=== PATIENT | male | born 1970 | race Caucasian/White ===

== ENCOUNTER 2020-10-01 17:29 | Emergency (ER) | payer BC ==
[2020-10-01] MEDS ORDERED: Famotidine 20 MG/2 ML SDV IVPUSH ONE (17:32)
[2020-10-01] MEDS ORDERED: diphenhydrAMINE 50 MG/ML SDV IVPUSH ONE (17:32)
[2020-10-01] MEDS ORDERED: methylPREDNISolone Sodium Succinate 125 MG/2 ML SDV IVPUSH ONE (17:32)
[2020-10-01] MEDS ORDERED: Sodium Chloride 0.9% 1,000 ML IV ONE (17:32)
--- NOTE | 2020-10-01 17:46 | EDM.PDOC ---
ED HPI GENERAL MEDICAL PROBLEM - General Stated Complaint: THROAT CLOSING UP Time Seen by Provider: 10/01/20 17:34 Source of Information: Reports: Patient History Limitations: Reports: No Limitations - History of Present Illness INITIAL COMMENTS - FREE TEXT/NARRATIVE: HISTORY AND PHYSICAL: History of present illness: Patient is a 50-year-old male who presents to the emergency room with concerns of an allergic reaction. He states 2 or 3 hours prior to arrival he was using Round-Up on the lawn and shortly afterwards felt a fullness sensation in his throat. He took 2 tabs of Benadryl prior to arrival but has not had any relief with that. Denies any other new exposures, foods or allergens. Patient denies any fever, chills, headache, change in vision, syncope or near syncope. Denies any chest pain, back pain, shortness of breath or cough. Denies any abdominal pain, nausea, vomiting, diarrhea, constipation or dysuria. Has not noted any blood in urine or stool. Patient has been eating and drinking appropriately. Review of systems: As per history of present illness and below otherwise all systems reviewed and negative. Past medical history: As per history of present illness and as reviewed below otherwise noncontributory. Surgical history: As per history of present illness and as reviewed below otherwise noncontributory. Social history: See social history for further information Family history: As per history of present illness and as reviewed below otherwise noncontributory. Physical exam: General: Well developed and well nourished. Alert and orientated x 3. Nontoxic in appearance and in no acute distress. Vital signs are stable and have been reviewed by me. Nursing notes were reviewed. HEENT: Atraumatic, normocephalic, pupils equal and reactive bilaterally, negativ e for conjunctival pallor or scleral icterus, mucous membranes moist, TMs normal bilaterally, throat clear, airway patent, neck supple, nontender, trachea midline. No drooling or trismus noted. No meningeal signs. No hot potato voice noted. Lungs: Clear to auscultation bilaterally. No wheezes, rales, or rhonchi. Chest nontender. Normal work of breathing, no accessory muscles used. Heart: S1S2, regular rate and rhythm without overt murmur, gallops, or rubs. No JVD. No peripheral edema Abdomen: Soft, nondistended, nontender. Normoactive bowel sounds. Negative for masses or costovertebral tenderness. Skin: Intact, warm, dry. No lesions or rashes noted. Hematologic: No petechiae or purpra. Mucosa appropriate color and normal nail bed color and refill. Extremities: Atraumatic, moves all extremities per self without difficulty or deficits, negative for cords or calf pain. Neurovascular unremarkable. Neuro: Awake, alert, oriented. Cranial nerves II through XII unremarkable. Cerebellum unremarkable. Motor and sensory unremarkable throughout. Exam nonfocal. Psychiatric: Mood and affect are appropriate. Normal thought process. Answering questions appropriately. Notes: *This patient was seen and evaluated during the 2019 SARS-CoV-2 novel coronavirus pandemic period. Community viral transmission is ongoing at time of this encounter and the emergency department is operating under pandemic response procedures. Patient is a 50-year-old male who presents to the emergency room with complaints of sensation of his tongue swelling after what he believes is an allergic reaction to Round-Up weed killer. Patient is able to swallow his saliva, breathe easy and even, and able speak clearly although does sound thick. I will give patient some epinephrine, IV fluids/medication and do basic lab work. Vital signs are stable at this time, will continue to monitor. Patient does feel improved after medications and fluids. Patient's states that he has had sinus issues for the past week, stuffy nose, nasal drainage and sinus pressure. Patient states he still feels like he has a lot of phlegm sitting in the back of his throat. We discussed treating for sinusitis. His vital signs are stable and oxygen saturation is 97% to 100% on room air. We will continue to monitor for 4 hours to ensure he is stable to be discharged to home. I have talked with the patient about today's findings, in addition to providing specific details for plan of care. Reassessment at the time of disposition demonstrates that the patient is in no acute distress. The patient is stable for discharge, counseling was provided and we discussed in great detail signs and symptoms that would prompt them to return to the Emergency Department. Medication, follow up and supportive care measures were reviewed and discussed. Voices understanding and is agreeable to plan of care. Denies any further questions or concerns at this time. Diagnostics: CBC, CMP, EKG Therapeutics: Epinephrine, Solu-Medrol, Pepcid, IV Fluids Prescription: Prednisone, EpiPen, Augmentin Impression: Allergic reaction Sinusitis Plan: 1. Avoid triggers. Continue to monitor for possible exposures/triggers/foods. 2. While symptomatic continue to routinely take Benadryl 50mg every 4-6 hours and Zantac 150mg twice daily. Take the Prednisone as prescribed. 3. Carry your Epi-Pen with you at all times. Use in the case of an emergency and call 911 and/or present to the ER. 4. You may use topical calamine lotion, cool tempid oatmeal baths, Aveeno bath/lotions. 5. Consider formal allergy testing once you have completed your medications and have improved. 6. Please follow up with your Primary care doctor tomorrow. If your symptoms should worsen, new symptoms develop or any of the signs and symptoms we discussed should arise please return to the emergency room or call 911 (if needed). Definitive disposition and diagnosis as appropriate pending reevaluation and review of above. - Related Data Allergies Allergy/AdvReac Type Severity Reaction Status Date / Time No Known Allergies Allergy Verified 10/01/20 17:33 Home Meds: Home Meds Fluticasone Propionate [Flonase Allergy Relief] 1 spray NASBOTH ASDIRECTED 04/09/16 [History] Glucosam/Chond/Collagen/Hyalur [Glucosamine Chondroitin] 1 tab PO DAILY 04/09/16 [History] Lisinopril 20 mg PO DAILY 04/09/16 [History] Tadalafil [Cialis] 1 tab PO ASDIRECTED 04/09/16 [History] hydroCHLOROthiazide [Hydrochlorothiazide] 12.5 mg PO DAILY 04/09/16 [History] Amoxicillin/Clavulanate K [Augmentin 875-125 MG] 1 tab PO BID 7 Days #14 tablet 10/01/20 [Rx] EPINEPHrine [Epipen 2-Mikhail] 0.3 mg IJ ASDIRECTED PRN #1 auto.injct 10/01/20 [Rx] predniSONE [Prednisone] 40 mg PO DAILY 3 Days #6 tablet 10/01/20 [Rx] Past Medical History HEENT History: Reports: Allergic Rhinitis, Other (See Below) Other HEENT History: wears glasses Cardiovascular History: Reports: Hypertension Respiratory History: Reports: Sleep Apnea Other Respiratory History: uses CPAP Genitourinary History: Reports: Other (See Below) Other Genitourinary History: hx urethral stricture Endocrine/Metabolic History: Reports: Obesity/BMI 30+ - Past Surgical History HEENT Surgical History: Reports: Other (See Below) Male Surgical History: Reports: Other (See Below) ED ROS ALLERGIC REACTION - Review of Systems Review Of Systems: Comprehensive ROS is negative, except as noted in HPI. ED EXAM GENERAL NO PERIP PULSE - Physical Exam Exam: See Below (See dictation) Course - Vital Signs Last Recorded V/S: Last Vital Signs Temp 98.7 F 10/01/20 17:34 Pulse 83 10/01/20 20:40 Resp 19 10/01/20 20:40 BP 171/114 H 10/01/20 20:40 Pulse Ox 96 10/01/20 20:40 - Orders/Labs/Meds Orders: Active Orders 24 hr Category Date Time Status EKG Documentation Completion [RC] AM Care 10/01/20 17:32 Active Labs: Laboratory Tests 10/01/20 10/01/20 Range/Units 17:40 17:40 WBC 6.28 (4.0-11.0) K/uL RBC 4.56 (4.50-5.90) M/uL Hgb 14.4 (13.0-17.0) g/dL Hct 41.5 (38.0-50.0) % MCV 91.0 (80.0-98.0) fL MCH 31.6 (27.0-32.0) pg MCHC 34.7 (31.0-37.0) g/dL RDW Std Deviation 43.4 (28.0-62.0) fl RDW Coeff of Britt 13 (11.0-15.0) % Plt Count 209 (150-400) K/uL MPV 9.60 (7.40-12.00) fL Neut % (Auto) 68.0 (48.0-80.0) % Lymph % (Auto) 19.1 (16.0-40.0) % Newton % (Auto) 8.0 (0.0-15.0) % Eos % (Auto) 4.6 (0.0-7.0) % Baso % (Auto) 0.3 (0.0-1.5) % Neut # (Auto) 4.3 (1.4-5.7) K/uL Lymph # (Auto) 1.2 (0.6-2.4) K/uL [place] # (Auto) 0.5 (0.0-0.8) K/uL Eos # (Auto) 0.3 (0.0-0.7) K/uL Baso # (Auto) 0.0 (0.0-0.1) K/uL Nucleated RBC % 0.0 /100WBC Nucleated RBCs # 0 K/uL Sodium 139 (136-148) mmol/L Potassium 4.1 (3.5-5.1) mmol/L Chloride 103 (98-107) mmol/L Carbon Dioxide 23.8 (21.0-32.0) mmol/L BUN 21 H (7.0-18.0) mg/dL Creatinine 1.0 (0.8-1.3) mg/dL Est Cr Clr Drug Dosing 103.89 mL/min Estimated GFR (MDRD) > 60.0 ml/min Glucose 98 (74-106) mg/dL Calcium 8.6 (8.5-10.1) mg/dL Total Bilirubin 0.3 (0.2-1.0) mg/dL AST 28 (15-37) IU/L ALT 38 (14-63) IU/L Alkaline Phosphatase 85 (46-116) U/L Total Protein 7.4 (6.4-8.2) g/dL Albumin 4.0 (3.4-5.0) g/dL Globulin 3.4 (2.6-4.0) g/dL Albumin/Globulin Ratio 1.2 (0.9-1.6) Meds: Medications Discontinued Medications Generic Name Dose Route Start Last Admin Trade Name Freq PRN Reason Stop Dose Admin Amoxicillin/Clavulanate Potassium 1 tab 10/01/20 20:33 10/01/20 20:39 Amoxicillin/Clavulanate K 875-125 Mg Tab PO 10/01/20 20:34 1 tab ONETIME ONE Administration Diphenhydramine HCl 25 mg 10/01/20 17:32 10/01/20 17:40 Diphenhydramine 50 Mg/Ml Sdv IVPUSH 10/01/20 17:33 25 mg ONETIME ONE Administration Epinephrine HCl 0.3 mg 10/01/20 17:58 10/01/20 18:09 Epinephrine 1 Mg/Ml Sdv IM 10/01/20 17:59 0.3 mg ONETIME ONE Administration Famotidine 20 mg 10/01/20 17:32 10/01/20 17:40 Famotidine 20 Mg/2 Ml Sdv IVPUSH 10/01/20 17:33 20 mg ONETIME ONE Administration Sodium Chloride 1,000 mls @ 999 mls/hr 10/01/20 17:32 10/01/20 17:39 Normal Saline IV 10/01/20 18:32 999 mls/hr STAT ONE Administration Methylprednisolone Sodium Succinate 125 mg 10/01/20 17:32 10/01/20 17:41 Methylprednisolone Sodium Succinate 125 Mg/2 Ml Sdv IVPUSH 10/01/20 17:33 125 mg ONETIME ONE Administration Departure - Departure Time of Disposition: 21:02 Disposition: Home, Self-Care 01 Clinical Impression: Allergic reaction Qualifiers: Encounter type: initial encounter Qualified Code(s): T78.40XA - Allergy, unspecified, initial encounter - Discharge Information Prescriptions: Amoxicillin/Clavulanate K [Augmentin 875-125 MG] 1 tab PO BID 7 Days #14 tablet EPINEPHrine [Epipen 2-Mikhail] 0.3 mg IJ ASDIRECTED PRN #1 auto.injct PRN Reason: Allergic reaction predniSONE [Prednisone] 40 mg PO DAILY 3 Days #6 tablet Referrals: Demi Siddiqui DO [Primary Care Provider] - Additional Instructions: The following information is given to patients seen in the emergency department who are being discharged to home. This information is to outline your options for follow-up care. We provide all patients seen in our emergency department with a follow-up referral. The need for follow-up, as well as the timing and circumstances, are variable depending upon the specifics of your emergency department visit. If you don't have a primary care physician on staff, we will provide you with a referral. We always advise you to contact your personal physician following an emergency department visit to inform them of the circumstance of the visit and for follow-up with them and/or the need for any referrals to a consulting specialist. The emergency department will also refer you to a specialist when appropriate. This referral assures that you have the opportunity for follow-up care with a specialist. All of these measure are taken in an effort to provide you with optimal care, which includes your follow-up. Under all circumstances we always encourage you to contact your private physician who remains a resource for coordinating your care. When calling for follow-up care, please make the office aware that this follow-up is from your recent emergency room visit. If for any reason you are refused follow-up, please contact the [facility] Emergency Department at and asked to speak to the emergency department charge nurse. [facility] [address] [place] [id number] [facility] [address] [place] [id number] Thank you for choosing the [facility] emergency department in [place] for your medical needs today. It was a pleasure caring for you. Today you were seen in the emergency department for allergic reaction. 1. Avoid triggers. Continue to monitor for possible exposures/triggers/foods. 2. While symptomatic continue to routinely take Benadryl 50mg every 4-6 hours and Zantac 150mg twice daily. Take the Prednisone as prescribed. 3. Carry your Epi-Pen with you at all times. Use in the case of an emergency and call 911 and/or present to the ER. 4. You may use topical calamine lotion, cool tempid oatmeal baths, Aveeno bath/lotions. 5. Consider formal allergy testing once you have completed your medications and have improved. 6. Please follow up with your Primary care doctor tomorrow. If your symptoms should worsen, new symptoms develop or any of the signs and symptoms we discussed should arise please return to the emergency room or call 911 (if needed). Sepsis Event Note (ED) - Focused Exam Vital Signs: Vital Signs Temp Pulse Resp BP Pulse Ox 10/01/20 20:40 83 19 171/114 H 96 10/01/20 17:34 98.7 F 81 16 174/116 H 96 - My Orders Last 24 Hours: My Active Orders 10/01/20 17:32 EKG Documentation Completion [RC] AM - Assessment/Plan Last 24 Hours: My Active Orders 10/01/20 17:32 EKG Documentation Completion [RC] AM
--- NOTE | 2020-10-01 17:48 | PCM.EKG ---
#1 Interpretation EKG Date: 10/01/20 Time: 17:45 Rhythm: NSR Rate (Beats/Min): 73 [place]: Normal P-Wave: Present QRS: Normal ST-T: Normal QT: Normal GA/PQ Interval: 157 Comparison: NA - No Prior EKG EKG Interpretation Comments: normal EKG, no acute ischemic changes
[2020-10-01] MEDS ORDERED: EPINEPHrine 1 MG/ML SDV IM ONE (17:58)
[2020-10-01 18:08] LABS: BLOOD UREA NITROGEN,BUN 21 mg/dL (7.0-18.0); CARBON DIOXIDE,CO2 23.8 mmol/L (21.0-32.0); CHLORIDE,CL 103 mmol/L (98-107); GLUCOSE RANDOM 98 mg/dL (74-106); POTASSIUM,K 4.1 mmol/L (3.5-5.1); SODIUM,NA 139 mmol/L (136-148)
[2020-10-01] MEDS ORDERED: Amoxicillin/Clavulanate K 875-125 MG Tab PO ONE (20:33)
[2020-10-01 22:51] VITALS: BP 167/98; PULSE 71
== END 2020-10-01 21:15 | disposition home or self-care (01) ==
LOC: MW.ED 17:29
DX: T78.40XA Allergy, unspecified, initial encounter (principal); J32.9 Chronic sinusitis, unspecified; I10 Essential (primary) hypertension; E66.9 Obesity, unspecified; Z68.38 Body mass index [BMI] 38.0-38.9, adult; Z79.899 Other long term (current) drug therapy
CPT/HCPCS: 36415; 80053; 85025; 93005; 96372; 96374; 96375; 99283; A9270; J0171; J1200; J2930; J3490; J7030

== ENCOUNTER 2020-11-26 12:55 | Emergency (ER) | payer BC ==
--- NOTE | 2020-11-26 13:02 | EDM.PDOC ---
ED HPI GENERAL MEDICAL PROBLEM - General Chief Complaint: Lower Extremity Injury/Pain Stated Complaint: PT WRECKED DIRTBIKE/POSS HYPER EXTENDED L LEG Time Seen by Provider: 11/26/20 12:57 Source of Information: Reports: Patient History Limitations: Reports: No Limitations - History of Present Illness INITIAL COMMENTS - FREE TEXT/NARRATIVE: HISTORY AND PHYSICAL: History of present illness: Patient denies any fever, chills, headache, change in vision, syncope or near syncope. Denies any chest pain, back pain, shortness of breath or cough. Denies any abdominal pain, nausea, vomiting, diarrhea, constipation or dysuria. Has not noted any blood in urine or stool. Patient has been eating and drinking appropriately. Review of systems: As per history of present illness and below otherwise all systems reviewed and negative. Past medical history: As per history of present illness and as reviewed below otherwise noncontributory. Surgical history: As per history of present illness and as reviewed below otherwise noncontributory. Social history: See social history for further information Family history: As per history of present illness and as reviewed below otherwise noncontributory. Physical exam: General: Well developed and well nourished. Alert and orientated x 3. Nontoxic in appearance and in no acute distress. Vital signs are stable and have been reviewed by me. Nursing notes were reviewed. HEENT: Atraumatic, normocephalic, pupils equal and reactive bilaterally, negative for conjunctival pallor or scleral icterus, mucous membranes moist, TMs normal bilaterally, throat clear, neck supple, nontender, trachea midline. No drooling or trismus noted. No meningeal signs. No hot potato voice noted. Lungs: Clear to auscultation bilaterally. No wheezes, rales, or rhonchi. Chest nontender. Normal work of breathing, no accessory muscles used. Heart: S1S2, regular rate and rhythm without overt murmur, gallops, or rubs. No JVD. No peripheral edema Abdomen: Soft, nondistended, nontender. Normoactive bowel sounds. Negative for masses or costovertebral tenderness. Pelvis: Stable nontender. C-spine/Back: No pinpoint vertebral tenderness upon palpation. No crepitus, step-offs or obvious deformities. Patient is ambulatory into the emergency room without difficulty or deficit. Able to rock back on heels and walk on toes. Denies any urinary or fecal incontinence. Denies any numbness, tingling or saddle paresthesia. No concerns of serious infection, fracture or cord compression, or cauda equina syndrome. Deep tendon reflexes brisk bilaterally. Skin: Intact, warm, dry. No lesions or rashes noted. Hematologic: No petechiae or purpra. Mucosa appropriate color and normal nail bed color and refill. Extremities: Atraumatic, moves all extremities per self without difficulty or deficits, negative for cords or calf pain. Neurovascular unremarkable. Neuro: Awake, alert, oriented. Cranial nerves II through XII unremarkable. Cerebellum unremarkable. Motor and sensory unremarkable throughout. Exam nonfocal. Psychiatric: Mood and affect are appropriate. Normal thought process. Answering questions appropriately. Please note that the patient was seen and evaluated during the 2019 SARS-CoV-2 novel coronavirus pandemic period. Community viral transmission is ongoing at time of this encounter and the emergency department is operating under pandemic response procedures. Medical Decision Making: I have talked with the patient about today's findings, in addition to providing specific details for plan of care. Reassessment at the time of disposition demonstrates that the patient is in no acute distress. The patient is stable for discharge, counseling was provided and we discussed in great detail signs and symptoms that would prompt them to return to the Emergency Department. Medication, follow up and supportive care measures were reviewed and discussed. Voices understanding and is agreeable to plan of care. Denies any further questions or concerns at this time. Diagnostics: Therapeutics: Prescription: Impression: Plan: 1. You were evaluated today on an emergent basis. Your 2. You can alternate Tylenol and ibuprofen as needed for pain and fever management. 3. We encourage you to follow up with your primary care provider and/or recommended specialist in the next few days for re-evaluation and further care/management. 4. If your symptoms should worsen, new symptoms develop or any of the signs and symptoms we discussed should arise please return to the emergency room or call 911 (if needed). Definitive disposition and diagnosis as appropriate pending reevaluation and review of above. - Related Data Allergies Allergy/AdvReac Type Severity Reaction Status Date / Time No Known Allergies Allergy Verified 10/01/20 17:33 Home Meds: Home Meds Fluticasone Propionate [Flonase Allergy Relief] 1 spray NASBOTH ASDIRECTED 04/09/16 [History] Glucosam/Chond/Collagen/Hyalur [Glucosamine Chondroitin] 1 tab PO DAILY 04/09/16 [History] Lisinopril 20 mg PO DAILY 04/09/16 [History] Tadalafil [Cialis] 1 tab PO ASDIRECTED 04/09/16 [History] hydroCHLOROthiazide [Hydrochlorothiazide] 12.5 mg PO DAILY 04/09/16 [History] Amoxicillin/Clavulanate K [Augmentin 875-125 MG] 1 tab PO BID 7 Days #14 tablet 10/01/20 [Rx] EPINEPHrine [Epipen 2-Mikhail] 0.3 mg IJ ASDIRECTED PRN #1 auto.injct 10/01/20 [Rx] predniSONE [Prednisone] 40 mg PO DAILY 3 Days #6 tablet 10/01/20 [Rx] Past Medical History HEENT History: Reports: Allergic Rhinitis, Other (See Below) Other HEENT History: wears glasses Cardiovascular History: Reports: Hypertension Respiratory History: Reports: Sleep Apnea Other Respiratory History: uses CPAP Genitourinary History: Reports: Other (See Below) Other Genitourinary History: hx urethral stricture Endocrine/Metabolic History: Reports: Obesity/BMI 30+ - Infectious Disease History Infectious Disease History: Reports: Chicken Pox, Influenza - Past Surgical History HEENT Surgical History: Reports: Other (See Below) Male Surgical History: Reports: Other (See Below) Social & Family History - Caffeine Use Caffeine Use: Reports: Coffee Departure - Discharge Information
== END 2020-11-26 13:35 | disposition left against medical advice (07) ==
LOC: MW.ED 12:55
DX: Z53.21 Procedure and treatment not carried out due to patient leaving prior to being seen by health care provider (principal)

== ENCOUNTER 2020-11-26 16:21 | Emergency (ER) | payer OTHER, BC ==
[2020-11-26 16:42] VITALS: PULSE 88
[2020-11-26] MEDS ORDERED: Ondansetron 4 MG Tab.DIS PO ONE (16:43)
[2020-11-26] MEDS ORDERED: Morphine 4 MG/ML Syringe IM ONE (16:43)
[2020-11-26 16:52] VITALS: BP 112/58
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
== END 2020-11-26 17:16 | disposition home or self-care (01) ==
LOC: MW.ED 16:21
DX: S76.312A Strain of muscle, fascia and tendon of the posterior muscle group at thigh level, left thigh, initial encounter (principal); I10 Essential (primary) hypertension; E66.9 Obesity, unspecified; Z79.899 Other long term (current) drug therapy; Z68.38 Body mass index [BMI] 38.0-38.9, adult; V86.56XA Driver of dirt bike or motor/cross bike injured in nontraffic accident, initial encounter; Y92.410 Unspecified street and highway as the place of occurrence of the external cause
CPT/HCPCS: 96372; 99283; A9270; J2270

== ENCOUNTER 2021-02-21 14:46 | Inpatient (IN) | payer BC ==
[2021-02-21] MEDS ORDERED: Sodium Chloride 0.9% 10 ML Syringe FLUSH PRN (17:23)
[2021-02-21] MEDS ORDERED: Sodium Chloride 0.9% 2.5 ML Syringe FLUSH PRN (17:23)
--- NOTE | 2021-02-21 17:51 | PCM.EKG ---
#1 Interpretation Time: 17:45 EKG Interpretation Comments: 127, A. fib with RVR, nonspecific ST/T findings
[2021-02-21 18:20] LABS: BLOOD UREA NITROGEN,BUN 20 mg/dL (7.0-18.0); CARBON DIOXIDE,CO2 28.1 mmol/L (21.0-32.0); CHLORIDE,CL 103 mmol/L (98-107); GLUCOSE RANDOM 123 mg/dL (74-106); POTASSIUM,K 3.9 mmol/L (3.5-5.1); SODIUM,NA 137 mmol/L (136-148)
--- NOTE | 2021-02-21 18:23 | CR ---
INDICATION: Shortness of breath with bilateral lower extremity edema. TECHNIQUE: Chest 1 view. COMPARISON: None. FINDINGS: Cardiovascular and mediastinum: Moderate cardiomegaly with mild central vascular congestion. CHF without overt edema is possible. Lungs and pleural spaces: Lungs are clear. No sign of infiltrate or mass. No sign of pleural effusion. No pneumothorax. Bones and soft tissues: No significant findings. IMPRESSION: No acute or significant findings. Dictated by Brayden Garcia MD @ 02/21/2021 6:21:44 PM (Electronically Signed)
[2021-02-21] MEDS ORDERED: Nitroglycerin 2% Oint 1 GM UD Packet TOP ONE (18:44)
[2021-02-21] MEDS ORDERED: Furosemide 40 MG/4 ML VIAL IVPUSH ONE (18:49)
[2021-02-21] MEDS ORDERED: Iopamidol 755 MG/ML 500 ML Multipack Bottle IVPUSH STA (19:03)
--- NOTE | 2021-02-21 19:31 | CT ---
INDICATION: New onset congestive heart failure shortness of breath with elevated D-dimer TECHNIQUE : CT scan of the chest. CTA PE protocol. IV contrast. 100 cc Isovue 370 FINDINGS: Pulmonary arteries:No pulmonary artery filling defects. Heart/mediastinum: Small pericardial effusion Calcification in the LAD coronary artery No suspicious adenopathy. Few mildly prominent lymph nodes in the right hilum. Lungs and pleura: Septal thickening Bilateral effusions right greater than left Mild dependent patchy areas of ground-glass attenuation. No pneumothorax No consolidation, mass or air bronchogram formation. Abdomen/skeletal:Unremarkable IMPRESSION: 1. No signs for acute pulmonary embolus. 2. Interstitial pulmonary edema pattern and pleural effusions. Please note that all CT scans at this facility use dose modulation, iterative reconstruction, and/or weight-based dosing when appropriate to reduce radiation dose to as low as reasonably achievable. Dictated by Walter Chirinos MD @ 02/21/2021 7:30:23 PM (Electronically Signed)
--- NOTE | 2021-02-21 20:07 | EDM.PDOC ---
ED HPI GENERAL MEDICAL PROBLEM - General Chief Complaint: Respiratory Problem Stated Complaint: bilateral leg swelling and SOB Time Seen by Provider: 02/21/21 16:46 Source of Information: Reports: Patient History Limitations: Reports: No Limitations - History of Present Illness INITIAL COMMENTS - FREE TEXT/NARRATIVE: HISTORY AND PHYSICAL: History of present illness: Patient is a 50-year-old male with a history of hypertension, JINA, and obesity who presents emergency room today with concern of worsening shortness of breath and lower extremity swelling x7 days. Patient states that he does have a family history of congestive heart failure and is concerned that possibly his symptoms are this. Patient states he also has a history of high blood pressure but generally has had well-controlled blood pressures and does follow with his primary care provider for this. Patient states that over the past 7 days, he has had worsening shortness of breath which is worse with lying flat and improved with sitting up. Patient states that he has had to sleep a few times in the recliner secondary to his symptoms. He does state that his lower extremity swelling is best in the morning and worse at night. Patient denies any trauma or injury. Patient Nu[place] any chest pain or any other associated symptoms. Patient denies fever, chills, chest pain,or cough. Denies headache, neck stiff ness, change in vision, syncope, or near syncope. Denies nausea, vomiting, abdominal pain, diarrhea, constipation, or dysuria. Has not noted any blood in urine or stool. Patient has been eating and drinking appropriately. Review of systems: As per history of present illness and below otherwise all systems reviewed and negative. Past medical history: As per history of present illness and as reviewed below otherwise noncontributory. Surgical history: As per history of present illness and as reviewed below otherwise noncontributory. Social history: See social history for further information Family history: As per history of present illness and as reviewed below otherwise noncontributory. Physical exam: General: Patient is alert, oriented, and in no acute distress. Patient sitting comfortably on exam table. Patient is tachycardic 115's on exam, otherwise, vitally stable. Patient's blood pressure 130/90, oxygen on room air 92%. Patient is short of breath with laying flat which does improve with sitting up. HEENT: Atraumatic, normocephalic, pupils equal and reactive bilaterally, negative for conjunctival pallor or scleral icterus, mucous membranes moist, throat clear, neck supple, nontender, trachea midline. No drooling or trismus noted. No meningeal signs. No hot potato voice noted. Lungs: Diminished lung sounds in the bases, decreased air exchange noted. Otherwise, clear to auscultation, chest nontender. Heart: S1S2, regular rate and rhythm without overt murmur Abdomen: Soft, nondistended, nontender. Negative for masses or hepatosplenomegaly. Negative for costovertebral tenderness. Pelvis: Stable nontender. Genitourinary: Deferred. Rectal: Deferred. Skin: Intact, warm, dry. No lesions or rashes noted. Extremities: 3+ pitting edema of bilateral lower extremities to the knees without erythema/ecchymosis. Otherwise, atraumatic, negative for cords or calf pain. Neurovascular unremarkable. Neuro: Awake, alert, oriented. Cranial nerves II through XII unremarkable. C erebellum unremarkable. Motor and sensory unremarkable throughout. Exam nonfocal. Medical Decision Making: Patient is a 50-year-old male, with a history of JINA, hypertension, and obesity, who presents emergency room today with concern of worsening shortness of breath and bilateral lower extremity edema x7 days. Upon arrival to the ED, patient is tachycardic 115's on exam, blood pressure is within normal limits, and 92% on room air. Patient is breathing comfortably and no sign of respiratory distress. Patient does have 3+ bilateral pitting edema of the lower extremities. Physical exam finding is concerning for new onset congestive heart failure. Will obtain cardiac evaluation and reassess patient. See Dr. Naidu's dictation for specific EKG interpretation. It does show atrial fibrillation with RVR and a rate of 127, no STEMI. Patient does not have any history of known atrial fibrillation and this presumed new onset. After patient is situated into the bed, his RVR does resolve on its own without intervention and is now ranging from 70s to 90s. Mild derangements of CBC are unremarkable. CMP does show an isolated elevation of BUN at 20, otherwise mild derangements of CMP are unremarkable. Troponin negative. Covid negative. 1 view chest x-ray shows no acute or significant findings. CHF without overt edema possible. D-dimer is elevated at 1.13 so also obtain angiography of the chest. Angiography of the chest shows no sign for acute pulmonary embolism. Interstitial pulmonary edema pattern and pleural effusions. Patient does not have a history of CHF and this is new onset. Patient did last take Viagra 72 hours ago. He is outside of the 24-48hour use of this medication and able to receive Nitropaste today. Patient provided with Nitropaste along with a dose of Lasix here in the emergency room. I did call and speak to the hospitalist on-call, Dr. Caputo, and thoroughly discussed patient's case. Will admit to inpatient to Dr. Caputo on telemetry. Voices understanding and is agreeable to plan of care. Denies any further questions or concerns at this time. Diagnostics: EKG, CBC, CMP, D-dimer, BNP, chest x-ray 1 view, angiography chest, Covid/influenza Therapeutics: Nitropaste, Lasix Impression: New onset congestive heart failure New onset atrial fibrillation Plan: Admit to inpatient to Dr. Caputo on telemetry Definitive disposition and diagnosis as appropriate pending reevaluation and review of above. - Related Data Allergies Allergy/AdvReac Type Severity Reaction Status Date / Time cat dander Allergy Swollen Verified 02/21/21 15:05 Eyes Home Meds: Home Meds Fluticasone Propionate [Flonase Allergy Relief] 1 spray NASBOTH ASDIRECTED 04/09/16 [History] Glucosam/Chond/Collagen/Hyalur [Glucosamine Chondroitin] 1 tab PO DAILY 04/09/16 [History] Lisinopril 40 mg PO DAILY 04/09/16 [History] hydroCHLOROthiazide [Hydrochlorothiazide] 25 mg PO DAILY 04/09/16 [History] EPINEPHrine [Epipen 2-Mikhail] 0.3 mg IJ ASDIRECTED PRN #1 auto.injct 10/01/20 [Rx] predniSONE [Prednisone] 40 mg PO DAILY 3 Days #6 tablet 10/01/20 [Rx] Hydrocodone/Acetaminophen [HYDROcodone-Acetaminophen 10-325 MG] 1 each PO TID PRN 4 Days #12 tab 11/26/20 [Rx] Furosemide 20 mg PO DAILY 02/21/21 [History] Meloxicam 15 mg PO DAILY 02/21/21 [History] Sertraline [Zoloft] 150 mg PO DAILY 02/21/21 [History] Sildenafil [Revatio] 20 mg PO TID 02/21/21 [History] amLODIPine [Norvasc] 10 mg PO DAILY 02/21/21 [History] atorvaSTATin [Lipitor] 20 mg PO BEDTIME 02/21/21 [History] Past Medical History - Past Health History Medical/Surgical History: Denies Medical/Surgical History HEENT History: Reports: Allergic Rhinitis, Impaired Vision Other HEENT History: wears glasses Cardiovascular History: Reports: Hypertension Respiratory History: Reports: Sleep Apnea Other Respiratory History: uses CPAP Gastrointestinal History: Reports: None Genitourinary History: Reports: Other (See Below) Other Genitourinary History: hx urethral stricture Musculoskeletal History: Reports: Arthritis Neurological History: Reports: None Psychiatric History: Reports: None Endocrine/Metabolic History: Reports: Obesity/BMI 30+ Hematologic History: Reports: None Immunologic History: Reports: None Oncologic (Cancer) History: Reports: None Dermatologic History: Reports: None - Infectious Disease History Infectious Disease History: Reports: Chicken Pox, Influenza - Past Surgical History Head Surgeries/Procedures: Reports: None HEENT Surgical History: Reports: Eye Surgery Cardiovascular Surgical History: Reports: None Respiratory Surgical History: Reports: None Male Surgical History: Reports: Other (See Below) Other Male Surgeries/Procedures: urethral surgery for urethral stricture, open repair in ' with previous visual urethrotomy x2 Endocrine Surgical History: Reports: None Musculoskeletal Surgical History: Reports: Other (See Below) Other Musculoskeletal Surgeries/Procedures:: hematoma removed from R hip x2 Social & Family History - Family History Family Medical History: No Pertinent Family History - Tobacco Use Tobacco Use Status *Q: Current Every Day Tobacco User Years of Tobacco use: 34 Packs/Tins Daily: 1 - Caffeine Use Caffeine Use: Reports: Coffee - Recreational Drug Use Recreational Drug Use: Yes Drug Use in Last 12 Months: Yes Recreational Drug Type: Reports: Marijuana/Hashish Recreational Drug Use Frequency: Monthly ED ROS GENERAL - Review of Systems Review Of Systems: Comprehensive ROS is negative, except as noted in HPI. ED EXAM, GENERAL - Physical Exam Exam: See Below (see dictation) Course - Vital Signs Last Recorded V/S: Last Vital Signs Temp 97.2 F 02/21/21 15:06 Pulse 60 02/21/21 17:04 Resp 18 02/21/21 17:04 BP 131/102 H 02/21/21 17:04 Pulse Ox 92 L 02/21/21 17:04 - Orders/Labs/Meds Orders: Active Orders 24 hr Category Date Time Status Admission Status [Patient Status] [ADT] Stat ADT 02/21/21 19:56 Active Cardiac Monitoring [RC] . DIRECTED Care 02/21/21 17:23 Active B-TYPE NATRIURETIC PEPTIDE,BNP [CHEM] Stat Lab 02/21/21 17:30 Received UA RFX HERACLIO AND CULT IF INDIC [URIN] Stat Lab 02/21/21 17:23 Ordered Sodium Chloride 0.9% [Saline Flush] Med 02/21/21 17:23 Active 10 ml FLUSH ASDIRECTED PRN Sodium Chloride 0.9% [Saline Flush] Med 02/21/21 17:23 Active 2.5 ml FLUSH ASDIRECTED PRN Saline Lock Insert [OM.PC] Stat Oth 02/21/21 17:23 Ordered Medication Orders Sodium Chloride (Sodium Chloride 0.9% 10 Ml Syringe) 10 ml FLUSH ASDIRECTED PRN PRN Reason: Keep Vein Open Last Admin: 02/21/21 18:00 Dose: 10 ml Documented by: ADELINA Sodium Chloride (Sodium Chloride 0.9% 2.5 Ml Syringe) 2.5 ml FLUSH ASDIRECTED PRN PRN Reason: Keep Vein Open Last Admin: 02/21/21 18:00 Dose: 2.5 ml Documented by: ADELINA Labs: Laboratory Tests 02/21/21 02/21/21 02/21/21 Range/Units 17:30 17:30 17:30 WBC 6.25 (4.0-11.0) K/uL RBC 4.35 L (4.50-5.90) M/uL Hgb 13.5 (13.0-17.0) g/dL Hct 40.6 (38.0-50.0) % MCV 93.3 (80.0-98.0) fL MCH 31.0 (27.0-32.0) pg MCHC 33.3 (31.0-37.0) g/dL RDW Std Deviation 44.7 (28.0-62.0) fl RDW Coeff of Britt 13 (11.0-15.0) % Plt Count 218 (150-400) K/uL MPV 9.90 (7.40-12.00) fL Neut % (Auto) 64.2 (48.0-80.0) % Lymph % (Auto) 23.4 (16.0-40.0) % [place] % (Auto) 9.0 (0.0-15.0) % Eos % (Auto) 3.2 (0.0-7.0) % Baso % (Auto) 0.2 (0.0-1.5) % Neut # (Auto) 4.0 (1.4-5.7) K/uL Lymph # (Auto) 1.5 (0.6-2.4) K/uL [place] # (Auto) 0.6 (0.0-0.8) K/uL Eos # (Auto) 0.2 (0.0-0.7) K/uL Baso # (Auto) 0.0 (0.0-0.1) K/uL Nucleated RBC % 0.0 /100WBC Nucleated RBCs # 0 K/uL D-Dimer, Quantitative 1.13 H (0.0-0.50) mg/L FEU Sodium 137 (136-148) mmol/L Potassium 3.9 (3.5-5.1) mmol/L Chloride 103 (98-107) mmol/L Carbon Dioxide 28.1 (21.0-32.0) mmol/L BUN 20 H (7.0-18.0) mg/dL Creatinine 1.1 (0.8-1.3) mg/dL Est Cr Clr Drug Dosing 94.45 mL/min Estimated GFR (MDRD) > 60.0 ml/min Glucose 123 H (74-106) mg/dL Calcium 8.6 (8.5-10.1) mg/dL Total Bilirubin 0.3 (0.2-1.0) mg/dL AST 29 (15-37) IU/L ALT 47 (14-63) IU/L Alkaline Phosphatase 81 (46-116) U/L Troponin I < 0.050 (0.000-0.056) ng/mL Total Protein 7.0 (6.4-8.2) g/dL Albumin 3.4 (3.4-5.0) g/dL Globulin 3.6 (2.6-4.0) g/dL Albumin/Globulin Ratio 0.9 (0.9-1.6) SARS-CoV-2 RNA (JOSE) (NEGATIVE) 12/14/21 Range/Units 17:56 WBC (4.0-11.0) K/uL RBC (4.50-5.90) M/uL Hgb (13.0-17.0) g/dL Hct (38.0-50.0) % MCV (80.0-98.0) fL MCH (27.0-32.0) pg MCHC (31.0-37.0) g/dL RDW Std Deviation (28.0-62.0) fl RDW Coeff of Britt (11.0-15.0) % Plt Count (150-400) K/uL MPV (7.40-12.00) fL Neut % (Auto) (48.0-80.0) % Lymph % (Auto) (16.0-40.0) % [place] % (Auto) (0.0-15.0) % Eos % (Auto) (0.0-7.0) % Baso % (Auto) (0.0-1.5) % Neut # (Auto) (1.4-5.7) K/uL Lymph # (Auto) (0.6-2.4) K/uL [place] # (Auto) (0.0-0.8) K/uL Eos # (Auto) (0.0-0.7) K/uL Baso # (Auto) (0.0-0.1) K/uL Nucleated RBC % /100WBC Nucleated RBCs # K/uL D-Dimer, Quantitative (0.0-0.50) mg/L FEU Sodium (136-148) mmol/L Potassium (3.5-5.1) mmol/L Chloride (98-107) mmol/L Carbon Dioxide (21.0-32.0) mmol/L BUN (7.0-18.0) mg/dL Creatinine (0.8-1.3) mg/dL Est Cr Clr Drug Dosing mL/min Estimated GFR (MDRD) ml/min Glucose (74-106) mg/dL Calcium (8.5-10.1) mg/dL Total Bilirubin (0.2-1.0) mg/dL AST (15-37) IU/L ALT (14-63) IU/L Alkaline Phosphatase (46-116) U/L Troponin I (0.000-0.056) ng/mL Total Protein (6.4-8.2) g/dL Albumin (3.4-5.0) g/dL Globulin (2.6-4.0) g/dL Albumin/Globulin Ratio (0.9-1.6) SARS-CoV-2 RNA (JOSE) NEGATIVE (NEGATIVE) Meds: Medications Generic Name Dose Route Start Last Admin Trade Name Freq PRN Reason Stop Dose Admin Sodium Chloride 10 ml 02/21/21 17:23 02/21/21 18:00 Sodium Chloride 0.9% 10 Ml Syringe FLUSH 10 ml ASDIRECTED PRN Administration Keep Vein Open Sodium Chloride 2.5 ml 02/21/21 17:23 02/21/21 18:00 Sodium Chloride 0.9% 2.5 Ml Syringe FLUSH 2.5 ml ASDIRECTED PRN Administration Keep Vein Open Discontinued Medications Generic Name Dose Route Start Last Admin Trade Name Freq PRN Reason Stop Dose Admin Furosemide 20 mg 02/21/21 18:49 02/21/21 19:26 Furosemide 40 Mg/4 Ml Vial IVPUSH 02/21/21 18:50 20 mg NOW ONE Administration Iopamidol 100 ml 02/21/21 19:03 02/21/21 19:04 Iopamidol 755 Mg/Ml 500 Ml Multipack Bottle IVPUSH 02/21/21 19:04 100 ml ONETIME STA Administration Nitroglycerin 1 gm 02/21/21 18:44 02/21/21 19:26 Nitroglycerin 2% Oint 1 Gm Ud Packet TOP 02/21/21 18:45 1 gm ONETIME ONE Administration Departure - Departure Time of Disposition: 20:07 Disposition: Admitted As Inpatient 67 Clinical Impression: New onset of congestive heart failure, New onset atrial fibrillation - Discharge Information Referrals: PCP,None [Primary Care Provider] - Forms: ED Department Discharge Sepsis Event Note (ED) - Evaluation Sepsis Screening Result: No Definite Risk - Focused Exam Vital Signs: Vital Signs Temp Pulse Resp BP Pulse Ox 02/21/21 17:04 60 18 131/102 H 92 L 02/21/21 15:06 97.2 F 111 H 24 H 132/91 H 92 L - My Orders Last 24 Hours: My Active Orders 02/21/21 17:23 Cardiac Monitoring [RC] . DIRECTED UA RFX HERACLIO AND CULT IF INDIC [URIN] Stat Sodium Chloride 0.9% [Saline Flush] 10 ml FLUSH ASDIRECTED PRN Sodium Chloride 0.9% [Saline Flush] 2.5 ml FLUSH ASDIRECTED PRN Saline Lock Insert [OM.PC] Stat 02/21/21 17:30 B-TYPE NATRIURETIC PEPTIDE,BNP [CHEM] Stat 02/21/21 19:56 Admission Status [Patient Status] [ADT] Stat - Assessment/Plan Last 24 Hours: My Active Orders 02/21/21 17:23 Cardiac Monitoring [RC] . DIRECTED UA RFX HERACLIO AND CULT IF INDIC [URIN] Stat Sodium Chloride 0.9% [Saline Flush] 10 ml FLUSH ASDIRECTED PRN Sodium Chloride 0.9% [Saline Flush] 2.5 ml FLUSH ASDIRECTED PRN Saline Lock Insert [OM.PC] Stat 02/21/21 17:30 B-TYPE NATRIURETIC PEPTIDE,BNP [CHEM] Stat 02/21/21 19:56 Admission Status [Patient Status] [ADT] Stat
--- NOTE | 2021-02-22 00:31 | PCM.HP.2 ---
H&P History of Present Illness - General Date of Service: 02/22/21 Admit Problem/Dx: Admission Diagnosis/Problem Admission Diagnosis/Problem Congestive heart failure - History of Present Illness Initial Comments - Free Text/Narative: 50 yo male with pmh of JINA and HTN who presents to the ED with complaint of wors ening shortness of breath with exertion. He also reports increasing leg edema and weight gain. CT chest angio reported pulmonary edema. - Related Data Allergies/Adverse Reactions: Allergies Allergy/AdvReac Type Severity Reaction Status Date / Time cat dander Allergy Swollen Verified 02/21/21 15:05 Eyes Home Medications: Home Meds Fluticasone Propionate [Flonase Allergy Relief] 1 spray NASBOTH ASDIRECTED 04/09/16 [History] Glucosam/Chond/Collagen/Hyalur [Glucosamine Chondroitin] 1 tab PO DAILY 04/09/16 [History] Lisinopril 40 mg PO DAILY 04/09/16 [History] hydroCHLOROthiazide [Hydrochlorothiazide] 25 mg PO DAILY 04/09/16 [History] EPINEPHrine [Epipen 2-Mikhail] 0.3 mg IJ ASDIRECTED PRN #1 auto.injct 10/01/20 [Rx] predniSONE [Prednisone] 40 mg PO DAILY 3 Days #6 tablet 10/01/20 [Rx] Hydrocodone/Acetaminophen [HYDROcodone-Acetaminophen 10-325 MG] 1 each PO TID PRN 4 Days #12 tab 11/26/20 [Rx] Furosemide 20 mg PO DAILY 02/21/21 [History] Meloxicam 15 mg PO DAILY 02/21/21 [History] Sertraline [Zoloft] 150 mg PO DAILY 02/21/21 [History] Sildenafil [Revatio] 20 mg PO TID 02/21/21 [History] amLODIPine [Norvasc] 10 mg PO DAILY 02/21/21 [History] atorvaSTATin [Lipitor] 20 mg PO BEDTIME 02/21/21 [History] Past Medical History - Past Health History Medical/Surgical History: Denies Medical/Surgical History HEENT History: Reports: Allergic Rhinitis, Impaired Vision Other HEENT History: wears glasses Cardiovascular History: Reports: Afib, Heart Failure, High Cholesterol, Hypertension Respiratory History: Reports: Sleep Apnea Other Respiratory History: uses CPAP Gastrointestinal History: Reports: None Genitourinary History: Reports: Other (See Below) Other Genitourinary History: hx urethral stricture Musculoskeletal History: Reports: Arthritis Neurological History: Reports: None Psychiatric History: Reports: Anxiety, Depression Endocrine/Metabolic History: Reports: Obesity/BMI 30+ Hematologic History: Reports: None Immunologic History: Reports: None Oncologic (Cancer) History: Reports: None Dermatologic History: Reports: None - Infectious Disease History Infectious Disease History: Reports: Chicken Pox, Influenza - Past Surgical History Head Surgeries/Procedures: Reports: None HEENT Surgical History: Reports: Eye Surgery Other HEENT Surgeries/Procedures: hx eye surgery as a child Cardiovascular Surgical History: Reports: None Respiratory Surgical History: Reports: None Male Surgical History: Reports: Other (See Below) Other Male Surgeries/Procedures: urethral surgery for urethral stricture, open repair in ' with previous visual urethrotomy x2 Endocrine Surgical History: Reports: None Musculoskeletal Surgical History: Reports: Other (See Below) Other Musculoskeletal Surgeries/Procedures:: hematoma removed from R hip x2 Social & Family History - Family History Family Medical History: No Pertinent Family History - Tobacco Use Tobacco Use Status *Q: Current Every Day Tobacco User Years of Tobacco use: 15 Packs/Tins Daily: 0.5 - Caffeine Use Caffeine Use: Reports: Coffee - Alcohol Use Days Per Week of Alcohol Use: 7 Number of Drinks Per Day: 1 Total Drinks Per Week: 7 - Recreational Drug Use Recreational Drug Use: Yes Drug Use in Last 12 Months: Yes Recreational Drug Type: Reports: Marijuana/Hashish Recreational Drug Use Frequency: Socially H&P Review of Systems - Review of Systems: Review Of Systems: Comprehensive ROS is negative, except as noted in HPI. Exam - Exam Exam: See Below - Vital Signs Vital Signs: Last Vital Signs Temp 36.4 C 02/21/21 21:40 Pulse 123 H 02/21/21 21:40 Resp 17 02/21/21 21:40 BP 121/75 02/21/21 21:40 Pulse Ox 95 02/21/21 21:40 Weight: 146.601 kg - Exam General: Alert, Oriented HEENT: Mucosa Moist & Marks Cardiovascular: Irregular Rhythm, Tachycardia GI/Abdominal Exam: Soft, Non-Tender Extremities: Non-Tender, Pedal Edema (+2) Skin: Warm, Dry, Intact - Patient Data Lab Results Last 24 hrs: Laboratory Results - last 24 hr 02/21/21 02/21/21 02/21/21 Range/Units 17:30 17:30 17:30 WBC 6.25 (4.0-11.0) K/uL RBC 4.35 L (4.50-5.90) M/uL Hgb 13.5 (13.0-17.0) g/dL Hct 40.6 (38.0-50.0) % MCV 93.3 (80.0-98.0) fL MCH 31.0 (27.0-32.0) pg MCHC 33.3 (31.0-37.0) g/dL RDW Std Deviation 44.7 (28.0-62.0) fl RDW Coeff of Britt 13 (11.0-15.0) % Plt Count 218 (150-400) K/uL MPV 9.90 (7.40-12.00) fL Neut % (Auto) 64.2 (48.0-80.0) % Lymph % (Auto) 23.4 (16.0-40.0) % [place] % (Auto) 9.0 (0.0-15.0) % Eos % (Auto) 3.2 (0.0-7.0) % Baso % (Auto) 0.2 (0.0-1.5) % Neut # (Auto) 4.0 (1.4-5.7) K/uL Lymph # (Auto) 1.5 (0.6-2.4) K/uL [place] # (Auto) 0.6 (0.0-0.8) K/uL Eos # (Auto) 0.2 (0.0-0.7) K/uL Baso # (Auto) 0.0 (0.0-0.1) K/uL Nucleated RBC % 0.0 /100WBC Nucleated RBCs # 0 K/uL D-Dimer, Quantitative 1.13 H (0.0-0.50) mg/L FEU Sodium 137 (136-148) mmol/L Potassium 3.9 (3.5-5.1) mmol/L Chloride 103 (98-107) mmol/L Carbon Dioxide 28.1 (21.0-32.0) mmol/L BUN 20 H (7.0-18.0) mg/dL Creatinine 1.1 (0.8-1.3) mg/dL Est Cr Clr Drug Dosing 94.45 mL/min Estimated GFR (MDRD) > 60.0 ml/min Glucose 123 H (74-106) mg/dL Calcium 8.6 (8.5-10.1) mg/dL Total Bilirubin 0.3 (0.2-1.0) mg/dL AST 29 (15-37) IU/L ALT 47 (14-63) IU/L Alkaline Phosphatase 81 (46-116) U/L Troponin I < 0.050 (0.000-0.056) ng/mL B-Natriuretic Peptide (<100) PG/ML Total Protein 7.0 (6.4-8.2) g/dL Albumin 3.4 (3.4-5.0) g/dL Globulin 3.6 (2.6-4.0) g/dL Albumin/Globulin Ratio 0.9 (0.9-1.6) SARS-CoV-2 RNA (JOSE) (NEGATIVE) 02/21/21 02/21/21 Range/Units 17:30 17:56 WBC (4.0-11.0) K/uL RBC (4.50-5.90) M/uL Hgb (13.0-17.0) g/dL Hct (38.0-50.0) % MCV (80.0-98.0) fL MCH (27.0-32.0) pg MCHC (31.0-37.0) g/dL RDW Std Deviation (28.0-62.0) fl RDW Coeff of Britt (11.0-15.0) % Plt Count (150-400) K/uL MPV (7.40-12.00) fL Neut % (Auto) (48.0-80.0) % Lymph % (Auto) (16.0-40.0) % [place] % (Auto) (0.0-15.0) % Eos % (Auto) (0.0-7.0) % Baso % (Auto) (0.0-1.5) % Neut # (Auto) (1.4-5.7) K/uL Lymph # (Auto) (0.6-2.4) K/uL [place] # (Auto) (0.0-0.8) K/uL Eos # (Auto) (0.0-0.7) K/uL Baso # (Auto) (0.0-0.1) K/uL Nucleated RBC % /100WBC Nucleated RBCs # K/uL D-Dimer, Quantitative (0.0-0.50) mg/L FEU Sodium (136-148) mmol/L Potassium (3.5-5.1) mmol/L Chloride (98-107) mmol/L Carbon Dioxide (21.0-32.0) mmol/L BUN (7.0-18.0) mg/dL Creatinine (0.8-1.3) mg/dL Est Cr Clr Drug Dosing mL/min Estimated GFR (MDRD) ml/min Glucose (74-106) mg/dL Calcium (8.5-10.1) mg/dL Total Bilirubin (0.2-1.0) mg/dL AST (15-37) IU/L ALT (14-63) IU/L Alkaline Phosphatase (46-116) U/L Troponin I (0.000-0.056) ng/mL B-Natriuretic Peptide 194 H (<100) PG/ML Total Protein (6.4-8.2) g/dL Albumin (3.4-5.0) g/dL Globulin (2.6-4.0) g/dL Albumin/Globulin Ratio (0.9-1.6) SARS-CoV-2 RNA (JOSE) NEGATIVE (NEGATIVE) Result Diagrams: 02/22/21 04:45 02/22/21 04:45 Sepsis Event Note - Evaluation Sepsis Screening Result: No Definite Risk - Focused Exam Vital Signs: Vital Signs Temp Pulse Resp BP Pulse Ox 02/21/21 21:40 36.4 C 123 H 17 121/75 95 02/21/21 21:05 120 H 20 154/83 H 94 L 02/21/21 20:00 122 H 20 154/83 H 94 L 02/21/21 17:04 60 18 131/102 H 92 L 02/21/21 15:06 36.2 C 111 H 24 H 132/91 H 92 L - Problem List (1) New onset atrial fibrillation SNOMED Code(s): 18020239 ICD Code: I48.91 - UNSPECIFIED ATRIAL FIBRILLATION Status: Acute Current Visit: Yes (2) New onset of congestive heart failure SNOMED Code(s): 14403084 ICD Code: I50.9 - HEART FAILURE, UNSPECIFIED Status: Acute Current Visit: Yes Problem List Initiated/Reviewed/Updated: Yes Orders Last 24hrs: Active Orders 24 hr Category Date Time Status Admission Status [Patient Status] [ADT] Stat ADT 02/21/21 19:56 Active Antiembolic Devices [RC] PER UNIT ROUTINE Care 02/22/21 00:25 Ordered Cardiac Monitoring [RC] . DIRECTED Care 02/21/21 17:23 Active Oxygen Therapy [RC] PRN Care 02/22/21 00:25 Ordered Telemetry Monitoring [Cardiac Monitoring] [RC] Q8H Care 02/21/21 20:42 Active Up ad Sarahi [RC] ASDIRECTED Care 02/22/21 00:25 Ordered VTE/DVT Education [RC] PER UNIT ROUTINE Care 02/22/21 00:25 Ordered Vital Signs [RC] Q4H Care 02/22/21 00:25 Ordered Regular Diet [DIET] Diet 02/22/21 Breakfast Ordered BASIC METABOLIC PANEL,BMP [CHEM] AM Lab 02/22/21 05:11 Ordered BASIC METABOLIC PANEL,BMP [CHEM] AM Lab 02/23/21 05:11 Ordered BASIC METABOLIC PANEL,BMP [CHEM] AM Lab 02/24/21 05:11 Ordered CBC WITH AUTO DIFF [HEME] AM Lab 02/22/21 05:11 Ordered CBC WITH AUTO DIFF [HEME] AM Lab 02/23/21 05:11 Ordered CBC WITH AUTO DIFF [HEME] AM Lab 02/24/21 05:11 Ordered INR,PT,PROTHROMBIN TIME [COAG] AM Lab 02/22/21 05:11 Ordered UA RFX HERACLIO AND CULT IF INDIC [URIN] Stat Lab 02/21/21 17:23 Ordered Apixaban [Eliquis] Med 02/22/21 09:00 Ordered 5 mg PO BID Furosemide [Lasix] Med 02/22/21 09:00 Ordered 40 mg IVPUSH BID Sodium Chloride 0.9% [Saline Flush] Med 02/21/21 17:23 Active 10 ml FLUSH ASDIRECTED PRN Sodium Chloride 0.9% [Saline Flush] Med 02/21/21 17:23 Active 2.5 ml FLUSH ASDIRECTED PRN Saline Lock Insert [OM.PC] Stat Oth 02/21/21 17:23 Ordered Sequential Compression Device [OM.PC] Per Unit Routine Oth 02/22/21 00:25 Ordered Resuscitation Status Routine Resus Stat 02/22/21 00:25 Ordered Medication Orders Apixaban (Apixaban 5 Mg Tab) 5 mg PO BID PAOLA Furosemide (Furosemide 40 Mg/4 Ml Vial) 40 mg IVPUSH BID PAOLA Sodium Chloride (Sodium Chloride 0.9% 10 Ml Syringe) 10 ml FLUSH ASDIRECTED PRN PRN Reason: Keep Vein Open Last Admin: 02/21/21 18:00 Dose: 10 ml Documented by: ADELINA Sodium Chloride (Sodium Chloride 0.9% 2.5 Ml Syringe) 2.5 ml FLUSH ASDIRECTED PRN PRN Reason: Keep Vein Open Last Admin: 02/21/21 18:00 Dose: 2.5 ml Documented by: ADELINA Assessment/Plan Comment:: 50 yo male with new onset CHF and atrial fibrillation CHF: will diuresis with lasix, Echocardiogram pending Atrial fibrillation: will ensure proper diuresis first before further rate control, will continue to monitor on telemetry. Patient has agreed to start anticoagulation.
[2021-02-22] MEDS ORDERED: Acetaminophen 325 MG Tab ONE (04:32)
[2021-02-22] MEDS ORDERED: Acetaminophen 325 MG Tab PO PRN (06:04)
[2021-02-22 07:16] LABS: BLOOD UREA NITROGEN,BUN 19 mg/dL (7.0-18.0); CARBON DIOXIDE,CO2 29.2 mmol/L (21.0-32.0); CHLORIDE,CL 105 mmol/L (98-107); GLUCOSE RANDOM 96 mg/dL (74-106); POTASSIUM,K 4.2 mmol/L (3.5-5.1); SODIUM,NA 141 mmol/L (136-148)
[2021-02-22] MEDS ORDERED: Furosemide 40 MG/4 ML VIAL IVPUSH SCH (09:00)
[2021-02-22] MEDS: Apixaban 5 MG Tab PO SCH ×2 (09:41→21:01)
--- NOTE | 2021-02-22 14:24 | PCM.PN ---
- General Info Date of Service: 02/22/21 - Review of Systems Systems Review Comment:: shortness of breath has improved - Patient Data Vitals - Most Recent: Last Vital Signs Temp 36.3 C 02/22/21 12:00 Pulse 137 H 02/22/21 12:00 Resp 22 H 02/22/21 12:00 BP 136/97 H 02/22/21 12:00 Pulse Ox 93 L 02/22/21 12:00 Weight - Most Recent: 146.601 kg Lab Results Last 24 Hours: Laboratory Results - last 24 hr 02/21/21 02/21/21 02/21/21 Range/Units 17:30 17:30 17:30 WBC 6.25 (4.0-11.0) K/uL RBC 4.35 L (4.50-5.90) M/uL Hgb 13.5 (13.0-17.0) g/dL Hct 40.6 (38.0-50.0) % MCV 93.3 (80.0-98.0) fL MCH 31.0 (27.0-32.0) pg MCHC 33.3 (31.0-37.0) g/dL RDW Std Deviation 44.7 (28.0-62.0) fl RDW Coeff of Britt 13 (11.0-15.0) % Plt Count 218 (150-400) K/uL MPV 9.90 (7.40-12.00) fL Neut % (Auto) 64.2 (48.0-80.0) % Lymph % (Auto) 23.4 (16.0-40.0) % [place] % (Auto) 9.0 (0.0-15.0) % Eos % (Auto) 3.2 (0.0-7.0) % Baso % (Auto) 0.2 (0.0-1.5) % Neut # (Auto) 4.0 (1.4-5.7) K/uL Lymph # (Auto) 1.5 (0.6-2.4) K/uL [place] # (Auto) 0.6 (0.0-0.8) K/uL Eos # (Auto) 0.2 (0.0-0.7) K/uL Baso # (Auto) 0.0 (0.0-0.1) K/uL Nucleated RBC % 0.0 /100WBC Nucleated RBCs # 0 K/uL INR D-Dimer, Quantitative 1.13 H (0.0-0.50) mg/L FEU Sodium 137 (136-148) mmol/L Potassium 3.9 (3.5-5.1) mmol/L Chloride 103 (98-107) mmol/L Carbon Dioxide 28.1 (21.0-32.0) mmol/L BUN 20 H (7.0-18.0) mg/dL Creatinine 1.1 (0.8-1.3) mg/dL Est Cr Clr Drug Dosing 94.45 mL/min Estimated GFR (MDRD) > 60.0 ml/min Glucose 123 H (74-106) mg/dL Calcium 8.6 (8.5-10.1) mg/dL Total Bilirubin 0.3 (0.2-1.0) mg/dL AST 29 (15-37) IU/L ALT 47 (14-63) IU/L Alkaline Phosphatase 81 (46-116) U/L Troponin I < 0.050 (0.000-0.056) ng/mL B-Natriuretic Peptide (<100) PG/ML Total Protein 7.0 (6.4-8.2) g/dL Albumin 3.4 (3.4-5.0) g/dL Globulin 3.6 (2.6-4.0) g/dL Albumin/Globulin Ratio 0.9 (0.9-1.6) Urine Color Urine Appearance Urine pH (5.0-8.0) Ur Specific [place] (1.001-1.035) Urine Protein (NEGATIVE) mg/dL Urine Glucose (UA) (NEGATIVE) mg/dL Urine Ketones (NEGATIVE) mg/dL Urine Occult Blood (NEGATIVE) Urine Nitrite (NEGATIVE) Urine Bilirubin (NEGATIVE) Urine Urobilinogen (<2.0) EU/dL Ur Leukocyte Esterase (NEGATIVE) SARS-CoV-2 RNA (JOSE) (NEGATIVE) 02/21/21 02/21/21 02/22/21 Range/Units 17:30 17:56 04:45 WBC 7.37 (4.0-11.0) K/uL RBC 4.13 L (4.50-5.90) M/uL Hgb 12.8 L (13.0-17.0) g/dL Hct 38.8 (38.0-50.0) % MCV 93.9 (80.0-98.0) fL MCH 31.0 (27.0-32.0) pg MCHC 33.0 (31.0-37.0) g/dL RDW Std Deviation 45.4 (28.0-62.0) fl RDW Coeff of Britt 13 (11.0-15.0) % Plt Count 226 (150-400) K/uL MPV 10.10 (7.40-12.00) fL Neut % (Auto) 74.2 (48.0-80.0) % Lymph % (Auto) 14.0 L (16.0-40.0) % [place] % (Auto) 9.1 (0.0-15.0) % Eos % (Auto) 2.4 (0.0-7.0) % Baso % (Auto) 0.3 (0.0-1.5) % Neut # (Auto) 5.5 (1.4-5.7) K/uL Lymph # (Auto) 1.0 (0.6-2.4) K/uL [place] # (Auto) 0.7 (0.0-0.8) K/uL Eos # (Auto) 0.2 (0.0-0.7) K/uL Baso # (Auto) 0.0 (0.0-0.1) K/uL Nucleated RBC % 0.0 /100WBC Nucleated RBCs # 0 K/uL INR D-Dimer, Quantitative (0.0-0.50) mg/L FEU Sodium (136-148) mmol/L Potassium (3.5-5.1) mmol/L Chloride (98-107) mmol/L Carbon Dioxide (21.0-32.0) mmol/L BUN (7.0-18.0) mg/dL Creatinine (0.8-1.3) mg/dL Est Cr Clr Drug Dosing mL/min Estimated GFR (MDRD) ml/min Glucose (74-106) mg/dL Calcium (8.5-10.1) mg/dL Total Bilirubin (0.2-1.0) mg/dL AST (15-37) IU/L ALT (14-63) IU/L Alkaline Phosphatase (46-116) U/L Troponin I (0.000-0.056) ng/mL B-Natriuretic Peptide 194 H (<100) PG/ML Total Protein (6.4-8.2) g/dL Albumin (3.4-5.0) g/dL Globulin (2.6-4.0) g/dL Albumin/Globulin Ratio (0.9-1.6) Urine Color Urine Appearance Urine pH (5.0-8.0) Ur Specific [place] (1.001-1.035) Urine Protein (NEGATIVE) mg/dL Urine Glucose (UA) (NEGATIVE) mg/dL Urine Ketones (NEGATIVE) mg/dL Urine Occult Blood (NEGATIVE) Urine Nitrite (NEGATIVE) Urine Bilirubin (NEGATIVE) Urine Urobilinogen (<2.0) EU/dL Ur Leukocyte Esterase (NEGATIVE) SARS-CoV-2 RNA (JOSE) NEGATIVE (NEGATIVE) 02/22/21 02/22/21 02/22/21 Range/Units 04:45 04:45 11:40 WBC (4.0-11.0) K/uL RBC (4.50-5.90) M/uL Hgb (13.0-17.0) g/dL Hct (38.0-50.0) % MCV (80.0-98.0) fL MCH (27.0-32.0) pg MCHC (31.0-37.0) g/dL RDW Std Deviation (28.0-62.0) fl RDW Coeff of Britt (11.0-15.0) % Plt Count (150-400) K/uL MPV (7.40-12.00) fL Neut % (Auto) (48.0-80.0) % Lymph % (Auto) (16.0-40.0) % [place] % (Auto) (0.0-15.0) % Eos % (Auto) (0.0-7.0) % Baso % (Auto) (0.0-1.5) % Neut # (Auto) (1.4-5.7) K/uL Lymph # (Auto) (0.6-2.4) K/uL [place] # (Auto) (0.0-0.8) K/uL Eos # (Auto) (0.0-0.7) K/uL Baso # (Auto) (0.0-0.1) K/uL Nucleated RBC % /100WBC Nucleated RBCs # K/uL INR 1.03 D-Dimer, Quantitative (0.0-0.50) mg/L FEU Sodium 141 (136-148) mmol/L Potassium 4.2 (3.5-5.1) mmol/L Chloride 105 (98-107) mmol/L Carbon Dioxide 29.2 (21.0-32.0) mmol/L BUN 19 H (7.0-18.0) mg/dL Creatinine 1.1 (0.8-1.3) mg/dL Est Cr Clr Drug Dosing 94.45 mL/min Estimated GFR (MDRD) > 60.0 ml/min Glucose 96 (74-106) mg/dL Calcium 8.2 L (8.5-10.1) mg/dL Total Bilirubin (0.2-1.0) mg/dL AST (15-37) IU/L ALT (14-63) IU/L Alkaline Phosphatase (46-116) U/L Troponin I (0.000-0.056) ng/mL B-Natriuretic Peptide (<100) PG/ML Total Protein (6.4-8.2) g/dL Albumin (3.4-5.0) g/dL Globulin (2.6-4.0) g/dL Albumin/Globulin Ratio (0.9-1.6) Urine Color YELLOW Urine Appearance CLEAR Urine pH 7.0 (5.0-8.0) Ur Specific [place] 1.015 (1.001-1.035) Urine Protein NEGATIVE (NEGATIVE) mg/dL Urine Glucose (UA) NEGATIVE (NEGATIVE) mg/dL Urine Ketones NEGATIVE (NEGATIVE) mg/dL Urine Occult Blood NEGATIVE (NEGATIVE) Urine Nitrite NEGATIVE (NEGATIVE) Urine Bilirubin NEGATIVE (NEGATIVE) Urine Urobilinogen 0.2 (<2.0) EU/dL Ur Leukocyte Esterase NEGATIVE (NEGATIVE) SARS-CoV-2 RNA (JOSE) (NEGATIVE) Med Orders - Current: Current Medications Acetaminophen (Acetaminophen 325 Mg Tab) 650 mg PO Q6H PRN PRN Reason: Pain Apixaban (Apixaban 5 Mg Tab) 5 mg PO BID [facility] Last Admin: 02/22/21 09:41 Dose: 5 mg Documented by: Furosemide (Furosemide 40 Mg/4 Ml Vial) 40 mg IVPUSH TID [facility] Sertraline HCl (Sertraline 50 Mg Tab) 150 mg PO DAILY [facility] Sodium Chloride (Sodium Chloride 0.9% 10 Ml Syringe) 10 ml FLUSH ASDIRECTED PRN PRN Reason: Keep Vein Open Last Admin: 02/21/21 18:00 Dose: 10 ml Documented by: Sodium Chloride (Sodium Chloride 0.9% 2.5 Ml Syringe) 2.5 ml FLUSH ASDIRECTED PRN PRN Reason: Keep Vein Open Last Admin: 02/21/21 18:00 Dose: 2.5 ml Documented by: Discontinued Medications Acetaminophen (Acetaminophen 325 Mg Tab) Confirm Administered Dose 650 mg .ROUTE .STK-MED ONE Stop: 02/22/21 04:33 Last Admin: 02/22/21 11:33 Dose: Not Given Documented by: Furosemide (Furosemide 40 Mg/4 Ml Vial) 20 mg IVPUSH NOW ONE Stop: 02/21/21 18:50 Last Admin: 02/21/21 19:26 Dose: 20 mg Documented by: Furosemide (Furosemide 40 Mg/4 Ml Vial) 40 mg IVPUSH BID [facility] Last Admin: 02/22/21 09:42 Dose: 40 mg Documented by: Iopamidol (Iopamidol 755 Mg/Ml 500 Ml Multipack Bottle) 100 ml IVPUSH ONETIME STA Stop: 02/21/21 19:04 Last Admin: 02/21/21 19:04 Dose: 100 ml Documented by: Nitroglycerin (Nitroglycerin 2% Oint 1 Gm Ud Packet) 1 gm TOP ONETIME ONE Stop: 02/21/21 18:45 Last Admin: 02/21/21 19:26 Dose: 1 gm Documented by: - Exam General: Alert, Oriented Neck: Supple Lungs: Clear to Auscultation, Normal Respiratory Effort Cardiovascular: Regular Rate, Regular Rhythm GI/Abdominal Exam: Soft Extremities: Non-Tender, Pedal Edema (+2) Skin: Warm, Dry, Intact - Patient Data Lab Results Last 24 hrs: Laboratory Results - last 24 hr 02/21/21 02/21/21 02/21/21 Range/Units 17:30 17:30 17:30 WBC 6.25 (4.0-11.0) K/uL RBC 4.35 L (4.50-5.90) M/uL Hgb 13.5 (13.0-17.0) g/dL Hct 40.6 (38.0-50.0) % MCV 93.3 (80.0-98.0) fL MCH 31.0 (27.0-32.0) pg MCHC 33.3 (31.0-37.0) g/dL RDW Std Deviation 44.7 (28.0-62.0) fl RDW Coeff of Britt 13 (11.0-15.0) % Plt Count 218 (150-400) K/uL MPV 9.90 (7.40-12.00) fL Neut % (Auto) 64.2 (48.0-80.0) % Lymph % (Auto) 23.4 (16.0-40.0) % [place] % (Auto) 9.0 (0.0-15.0) % Eos % (Auto) 3.2 (0.0-7.0) % Baso % (Auto) 0.2 (0.0-1.5) % Neut # (Auto) 4.0 (1.4-5.7) K/uL Lymph # (Auto) 1.5 (0.6-2.4) K/uL [place] # (Auto) 0.6 (0.0-0.8) K/uL Eos # (Auto) 0.2 (0.0-0.7) K/uL Baso # (Auto) 0.0 (0.0-0.1) K/uL Nucleated RBC % 0.0 /100WBC Nucleated RBCs # 0 K/uL INR D-Dimer, Quantitative 1.13 H (0.0-0.50) mg/L FEU Sodium 137 (136-148) mmol/L Potassium 3.9 (3.5-5.1) mmol/L Chloride 103 (98-107) mmol/L Carbon Dioxide 28.1 (21.0-32.0) mmol/L BUN 20 H (7.0-18.0) mg/dL Creatinine 1.1 (0.8-1.3) mg/dL Est Cr Clr Drug Dosing 94.45 mL/min Estimated GFR (MDRD) > 60.0 ml/min Glucose 123 H (74-106) mg/dL Calcium 8.6 (8.5-10.1) mg/dL Total Bilirubin 0.3 (0.2-1.0) mg/dL AST 29 (15-37) IU/L ALT 47 (14-63) IU/L Alkaline Phosphatase 81 (46-116) U/L Troponin I < 0.050 (0.000-0.056) ng/mL B-Natriuretic Peptide (<100) PG/ML Total Protein 7.0 (6.4-8.2) g/dL Albumin 3.4 (3.4-5.0) g/dL Globulin 3.6 (2.6-4.0) g/dL Albumin/Globulin Ratio 0.9 (0.9-1.6) Urine Color Urine Appearance Urine pH (5.0-8.0) Ur Specific [place] (1.001-1.035) Urine Protein (NEGATIVE) mg/dL Urine Glucose (UA) (NEGATIVE) mg/dL Urine Ketones (NEGATIVE) mg/dL Urine Occult Blood (NEGATIVE) Urine Nitrite (NEGATIVE) Urine Bilirubin (NEGATIVE) Urine Urobilinogen (<2.0) EU/dL Ur Leukocyte Esterase (NEGATIVE) SARS-CoV-2 RNA (JOSE) (NEGATIVE) 02/21/21 02/21/21 02/22/21 Range/Units 17:30 17:56 04:45 WBC 7.37 (4.0-11.0) K/uL RBC 4.13 L (4.50-5.90) M/uL Hgb 12.8 L (13.0-17.0) g/dL Hct 38.8 (38.0-50.0) % MCV 93.9 (80.0-98.0) fL MCH 31.0 (27.0-32.0) pg MCHC 33.0 (31.0-37.0) g/dL RDW Std Deviation 45.4 (28.0-62.0) fl RDW Coeff of Britt 13 (11.0-15.0) % Plt Count 226 (150-400) K/uL MPV 10.10 (7.40-12.00) fL Neut % (Auto) 74.2 (48.0-80.0) % Lymph % (Auto) 14.0 L (16.0-40.0) % [place] % (Auto) 9.1 (0.0-15.0) % Eos % (Auto) 2.4 (0.0-7.0) % Baso % (Auto) 0.3 (0.0-1.5) % Neut # (Auto) 5.5 (1.4-5.7) K/uL Lymph # (Auto) 1.0 (0.6-2.4) K/uL [place] # (Auto) 0.7 (0.0-0.8) K/uL Eos # (Auto) 0.2 (0.0-0.7) K/uL Baso # (Auto) 0.0 (0.0-0.1) K/uL Nucleated RBC % 0.0 /100WBC Nucleated RBCs # 0 K/uL INR D-Dimer, Quantitative (0.0-0.50) mg/L FEU Sodium (136-148) mmol/L Potassium (3.5-5.1) mmol/L Chloride (98-107) mmol/L Carbon Dioxide (21.0-32.0) mmol/L BUN (7.0-18.0) mg/dL Creatinine (0.8-1.3) mg/dL Est Cr Clr Drug Dosing mL/min Estimated GFR (MDRD) ml/min Glucose (74-106) mg/dL Calcium (8.5-10.1) mg/dL Total Bilirubin (0.2-1.0) mg/dL AST (15-37) IU/L ALT (14-63) IU/L Alkaline Phosphatase (46-116) U/L Troponin I (0.000-0.056) ng/mL B-Natriuretic Peptide 194 H (<100) PG/ML Total Protein (6.4-8.2) g/dL Albumin (3.4-5.0) g/dL Globulin (2.6-4.0) g/dL Albumin/Globulin Ratio (0.9-1.6) Urine Color Urine Appearance Urine pH (5.0-8.0) Ur Specific [place] (1.001-1.035) Urine Protein (NEGATIVE) mg/dL Urine Glucose (UA) (NEGATIVE) mg/dL Urine Ketones (NEGATIVE) mg/dL Urine Occult Blood (NEGATIVE) Urine Nitrite (NEGATIVE) Urine Bilirubin (NEGATIVE) Urine Urobilinogen (<2.0) EU/dL Ur Leukocyte Esterase (NEGATIVE) SARS-CoV-2 RNA (JOSE) NEGATIVE (NEGATIVE) 02/22/21 02/22/21 02/22/21 Range/Units 04:45 04:45 11:40 WBC (4.0-11.0) K/uL RBC (4.50-5.90) M/uL Hgb (13.0-17.0) g/dL Hct (38.0-50.0) % MCV (80.0-98.0) fL MCH (27.0-32.0) pg MCHC (31.0-37.0) g/dL RDW Std Deviation (28.0-62.0) fl RDW Coeff of Britt (11.0-15.0) % Plt Count (150-400) K/uL MPV (7.40-12.00) fL Neut % (Auto) (48.0-80.0) % Lymph % (Auto) (16.0-40.0) % [place] % (Auto) (0.0-15.0) % Eos % (Auto) (0.0-7.0) % Baso % (Auto) (0.0-1.5) % Neut # (Auto) (1.4-5.7) K/uL Lymph # (Auto) (0.6-2.4) K/uL [place] # (Auto) (0.0-0.8) K/uL Eos # (Auto) (0.0-0.7) K/uL Baso # (Auto) (0.0-0.1) K/uL Nucleated RBC % /100WBC Nucleated RBCs # K/uL INR 1.03 D-Dimer, Quantitative (0.0-0.50) mg/L FEU Sodium 141 (136-148) mmol/L Potassium 4.2 (3.5-5.1) mmol/L Chloride 105 (98-107) mmol/L Carbon Dioxide 29.2 (21.0-32.0) mmol/L BUN 19 H (7.0-18.0) mg/dL Creatinine 1.1 (0.8-1.3) mg/dL Est Cr Clr Drug Dosing 94.45 mL/min Estimated GFR (MDRD) > 60.0 ml/min Glucose 96 (74-106) mg/dL Calcium 8.2 L (8.5-10.1) mg/dL Total Bilirubin (0.2-1.0) mg/dL AST (15-37) IU/L ALT (14-63) IU/L Alkaline Phosphatase (46-116) U/L Troponin I (0.000-0.056) ng/mL B-Natriuretic Peptide (<100) PG/ML Total Protein (6.4-8.2) g/dL Albumin (3.4-5.0) g/dL Globulin (2.6-4.0) g/dL Albumin/Globulin Ratio (0.9-1.6) Urine Color YELLOW Urine Appearance CLEAR Urine pH 7.0 (5.0-8.0) Ur Specific [place] 1.015 (1.001-1.035) Urine Protein NEGATIVE (NEGATIVE) mg/dL Urine Glucose (UA) NEGATIVE (NEGATIVE) mg/dL Urine Ketones NEGATIVE (NEGATIVE) mg/dL Urine Occult Blood NEGATIVE (NEGATIVE) Urine Nitrite NEGATIVE (NEGATIVE) Urine Bilirubin NEGATIVE (NEGATIVE) Urine Urobilinogen 0.2 (<2.0) EU/dL Ur Leukocyte Esterase NEGATIVE (NEGATIVE) SARS-CoV-2 RNA (JOSE) (NEGATIVE) Result Diagrams: 02/22/21 04:45 02/22/21 04:45 Sepsis Event Note - Evaluation Sepsis Screening Result: No Definite Risk - Focused Exam Vital Signs: Vital Signs Temp Pulse Resp BP Pulse Ox 02/22/21 12:00 36.3 C 137 H 22 H 136/97 H 93 L 02/22/21 08:00 35.8 C L 119 H 20 128/99 H 92 L - Problem List & Annotations (1) New onset atrial fibrillation SNOMED Code(s): 84294048 Code(s): I48.91 - UNSPECIFIED ATRIAL FIBRILLATION Status: Acute Current Visit: Yes (2) New onset of congestive heart failure SNOMED Code(s): 23362718 Code(s): I50.9 - HEART FAILURE, UNSPECIFIED Status: Acute Current Visit: Yes - Problem List Review Problem List Initiated/Reviewed/Updated: Yes - My Orders Last 24 Hours: My Active Orders 02/21/21 20:42 Telemetry Monitoring [Cardiac Monitoring] [] Q8H 02/22/21 00:25 Antiembolic Devices [RC] PER UNIT ROUTINE Oxygen Therapy [RC] PRN Up ad Sarahi [RC] ASDIRECTED VTE/DVT Education [RC] PER UNIT ROUTINE Vital Signs [RC] Q4H Sequential Compression Device [OM.PC] Per Unit Routine Resuscitation Status Routine 02/22/21 00:30 Echo Comp wo Cont [US] Routine 02/22/21 06:04 Acetaminophen [TylenoL] 650 mg PO Q6H PRN 02/22/21 Breakfast Regular Diet [DIET] 02/22/21 09:00 Apixaban [Eliquis] 5 mg PO BID 02/22/21 14:00 Furosemide [Lasix] 40 mg IVPUSH TID Sertraline [Zoloft] 150 mg PO DAILY 02/22/21 Dinner Fluid Restriction [DIET] 02/23/21 05:11 BASIC METABOLIC PANEL,BMP [CHEM] AM CBC WITH AUTO DIFF [HEME] AM 02/23/21 06:00 Daily Weight [Height and Weight] [RC] DAILY 02/24/21 05:11 BASIC METABOLIC PANEL,BMP [CHEM] AM CBC WITH AUTO DIFF [HEME] AM - Plan Plan:: 50 yo male with new onset CHF and atrial fibrillation CHF: will diuresis with Lasix, Echocardiogram pending Atrial fibrillation: will ensure proper diuresis first before further rate control, will continue to monitor on telemetry. continue Eliquis.
[2021-02-22] MEDS: Sertraline 50 MG Tab PO SCH (14:31)
[2021-02-22] MEDS: Furosemide 40 MG/4 ML VIAL IVPUSH SCH ×2 (14:32→21:01)
[2021-02-22] MEDS ORDERED: Calcium Carbonate 500 MG Tab.Chew PO PRN ×2 (22:23→22:43)
[2021-02-23 07:04] LABS: BLOOD UREA NITROGEN,BUN 16 mg/dL (7.0-18.0); CARBON DIOXIDE,CO2 31.3 mmol/L (21.0-32.0); CHLORIDE,CL 103 mmol/L (98-107); GLUCOSE RANDOM 101 mg/dL (74-106); POTASSIUM,K 3.8 mmol/L (3.5-5.1); SODIUM,NA 142 mmol/L (136-148)
[2021-02-23] MEDS: Furosemide 40 MG/4 ML VIAL IVPUSH SCH ×3 (09:48→22:18)
[2021-02-23] MEDS: Sertraline 50 MG Tab PO SCH (09:53)
[2021-02-23] MEDS: Apixaban 5 MG Tab PO SCH ×2 (09:53→22:18)
[2021-02-23] MEDS: Metoprolol Tartrate 25 MG Tab PO SCH ×3 (11:29→22:18)
--- NOTE | 2021-02-23 12:47 | PCM.PN ---
- General Info Date of Service: 02/23/21 - Review of Systems Systems Review Comment:: shortness of breath has improved - Patient Data Vitals - Most Recent: Last Vital Signs Temp 36.2 C 02/23/21 11:41 Pulse 93 02/23/21 11:41 Resp 18 02/23/21 11:41 BP 141/117 H 02/23/21 11:41 Pulse Ox 96 02/23/21 11:41 Weight - Most Recent: 138.119 kg I&O - Last 24 Hours: Intake & Output 02/22/21 02/23/21 02/23/21 22:59 06:59 14:59 Intake Total 200 Output Total 3550 Balance -3350 Lab Results Last 24 Hours: Laboratory Results - last 24 hr 02/23/21 02/23/21 Range/Units 05:33 05:33 WBC 6.46 (4.0-11.0) K/uL RBC 4.81 (4.50-5.90) M/uL Hgb 15.0 (13.0-17.0) g/dL Hct 44.9 (38.0-50.0) % MCV 93.3 (80.0-98.0) fL MCH 31.2 (27.0-32.0) pg MCHC 33.4 (31.0-37.0) g/dL RDW Std Deviation 45.3 (28.0-62.0) fl RDW Coeff of Britt 13 (11.0-15.0) % Plt Count 253 (150-400) K/uL MPV 10.40 (7.40-12.00) fL Neut % (Auto) 61.9 (48.0-80.0) % Lymph % (Auto) 22.1 (16.0-40.0) % [place] % (Auto) 12.4 (0.0-15.0) % Eos % (Auto) 3.3 (0.0-7.0) % Baso % (Auto) 0.3 (0.0-1.5) % Neut # (Auto) 4.0 (1.4-5.7) K/uL Lymph # (Auto) 1.4 (0.6-2.4) K/uL [place] # (Auto) 0.8 (0.0-0.8) K/uL Eos # (Auto) 0.2 (0.0-0.7) K/uL Baso # (Auto) 0.0 (0.0-0.1) K/uL Nucleated RBC % 0.0 /100WBC Nucleated RBCs # 0 K/uL Sodium 142 (136-148) mmol/L Potassium 3.8 (3.5-5.1) mmol/L Chloride 103 (98-107) mmol/L Carbon Dioxide 31.3 (21.0-32.0) mmol/L BUN 16 (7.0-18.0) mg/dL Creatinine 1.1 (0.8-1.3) mg/dL Est Cr Clr Drug Dosing 94.45 mL/min Estimated GFR (MDRD) > 60.0 ml/min Glucose 101 (74-106) mg/dL Calcium 9.1 (8.5-10.1) mg/dL Med Orders - Current: Current Medications Acetaminophen (Acetaminophen 325 Mg Tab) 650 mg PO Q6H PRN PRN Reason: Pain Apixaban (Apixaban 5 Mg Tab) 5 mg PO BID [facility] Last Admin: 02/23/21 09:53 Dose: 5 mg Documented by: Calcium Carbonate/Glycine (Calcium Carbonate 500 Mg Tab.Chew) 1,000 mg PO TID PRN PRN Reason: Indigestion Last Admin: 02/22/21 22:53 Dose: 1,000 mg Documented by: Furosemide (Furosemide 40 Mg/4 Ml Vial) 40 mg IVPUSH TID [facility] Last Admin: 02/23/21 09:48 Dose: Not Given Documented by: Metoprolol Tartrate (Metoprolol Tartrate 25 Mg Tab) 25 mg PO Q6H [facility] Last Admin: 02/23/21 11:29 Dose: 25 mg Documented by: Sertraline HCl (Sertraline 50 Mg Tab) 150 mg PO DAILY [facility] Last Admin: 02/23/21 09:53 Dose: 150 mg Documented by: Sodium Chloride (Sodium Chloride 0.9% 10 Ml Syringe) 10 ml FLUSH ASDIRECTED PRN PRN Reason: Keep Vein Open Last Admin: 02/21/21 18:00 Dose: 10 ml Documented by: Sodium Chloride (Sodium Chloride 0.9% 2.5 Ml Syringe) 2.5 ml FLUSH ASDIRECTED PRN PRN Reason: Keep Vein Open Last Admin: 02/21/21 18:00 Dose: 2.5 ml Documented by: Discontinued Medications Acetaminophen (Acetaminophen 325 Mg Tab) Confirm Administered Dose 650 mg .ROUTE .STK-MED ONE Stop: 02/22/21 04:33 Last Admin: 02/22/21 11:33 Dose: Not Given Documented by: Calcium Carbonate/Glycine (Calcium Carbonate 500 Mg Tab.Chew) 1,000 mg PO Q2HR PRN PRN Reason: Indigestion Furosemide (Furosemide 40 Mg/4 Ml Vial) 20 mg IVPUSH NOW ONE Stop: 02/21/21 18:50 Last Admin: 02/21/21 19:26 Dose: 20 mg Documented by: Furosemide (Furosemide 40 Mg/4 Ml Vial) 40 mg IVPUSH BID [facility] Last Admin: 02/22/21 09:42 Dose: 40 mg Documented by: Iopamidol (Iopamidol 755 Mg/Ml 500 Ml Multipack Bottle) 100 ml IVPUSH ONETIME STA Stop: 02/21/21 19:04 Last Admin: 02/21/21 19:04 Dose: 100 ml Documented by: Nitroglycerin (Nitroglycerin 2% Oint 1 Gm Ud Packet) 1 gm TOP ONETIME ONE Stop: 02/21/21 18:45 Last Admin: 02/21/21 19:26 Dose: 1 gm Documented by: - Exam General: Alert, Oriented Lungs: Clear to Auscultation, Normal Respiratory Effort Cardiovascular: Regular Rate, Regular Rhythm GI/Abdominal Exam: Soft, Non-Tender, No Distention Extremities: Pedal Edema (+2) Skin: Warm, Dry, Intact Neurological: No New Focal Deficit - Patient Data Lab Results Last 24 hrs: Laboratory Results - last 24 hr 02/23/21 02/23/21 Range/Units 05:33 05:33 WBC 6.46 (4.0-11.0) K/uL RBC 4.81 (4.50-5.90) M/uL Hgb 15.0 (13.0-17.0) g/dL Hct 44.9 (38.0-50.0) % MCV 93.3 (80.0-98.0) fL MCH 31.2 (27.0-32.0) pg MCHC 33.4 (31.0-37.0) g/dL RDW Std Deviation 45.3 (28.0-62.0) fl RDW Coeff of Britt 13 (11.0-15.0) % Plt Count 253 (150-400) K/uL MPV 10.40 (7.40-12.00) fL Neut % (Auto) 61.9 (48.0-80.0) % Lymph % (Auto) 22.1 (16.0-40.0) % [place] % (Auto) 12.4 (0.0-15.0) % Eos % (Auto) 3.3 (0.0-7.0) % Baso % (Auto) 0.3 (0.0-1.5) % Neut # (Auto) 4.0 (1.4-5.7) K/uL Lymph # (Auto) 1.4 (0.6-2.4) K/uL [place] # (Auto) 0.8 (0.0-0.8) K/uL Eos # (Auto) 0.2 (0.0-0.7) K/uL Baso # (Auto) 0.0 (0.0-0.1) K/uL Nucleated RBC % 0.0 /100WBC Nucleated RBCs # 0 K/uL Sodium 142 (136-148) mmol/L Potassium 3.8 (3.5-5.1) mmol/L Chloride 103 (98-107) mmol/L Carbon Dioxide 31.3 (21.0-32.0) mmol/L BUN 16 (7.0-18.0) mg/dL Creatinine 1.1 (0.8-1.3) mg/dL Est Cr Clr Drug Dosing 94.45 mL/min Estimated GFR (MDRD) > 60.0 ml/min Glucose 101 (74-106) mg/dL Calcium 9.1 (8.5-10.1) mg/dL Result Diagrams: 02/23/21 05:33 02/23/21 05:33 Sepsis Event Note - Evaluation Sepsis Screening Result: No Definite Risk - Focused Exam Vital Signs: Vital Signs Temp Pulse Pulse Resp BP BP Pulse Ox 02/23/21 11:41 36.2 C 93 18 141/117 H 96 02/23/21 11:29 94 141/117 H 02/23/21 08:00 35.9 C L 109 H 18 132/92 H 96 02/23/21 04:00 36.0 C L 107 H 20 153/98 H 94 L - Problem List & Annotations (1) New onset atrial fibrillation SNOMED Code(s): 28610711 Code(s): I48.91 - UNSPECIFIED ATRIAL FIBRILLATION Status: Acute Current Visit: Yes (2) New onset of congestive heart failure SNOMED Code(s): 78553423 Code(s): I50.9 - HEART FAILURE, UNSPECIFIED Status: Acute Current Visit: Yes - Problem List Review Problem List Initiated/Reviewed/Updated: Yes - My Orders Last 24 Hours: My Active Orders 02/22/21 14:00 Furosemide [Lasix] 40 mg IVPUSH TID Sertraline [Zoloft] 150 mg PO DAILY 02/22/21 14:22 Intake and Output Strict [RC] Q12H 02/22/21 Dinner Fluid Restriction [DIET] 02/22/21 22:43 Calcium Carbonate [Tums] 1,000 mg PO TID PRN 02/23/21 06:00 Daily Weight [Height and Weight] [RC] DAILY 02/23/21 10:45 Metoprolol Tartrate [Lopressor] 25 mg PO Q6H 02/24/21 05:11 BASIC METABOLIC PANEL,BMP [CHEM] AM CBC WITH AUTO DIFF [HEME] AM - Plan Plan:: 50 yo male with new onset CHF and atrial fibrillation CHF: will continue lasix, Echocardiogram obtained report pending Atrial fibrillation: will start metoprolol for rate control. Continue eliquis
[2021-02-24] MEDS: Metoprolol Tartrate 25 MG Tab PO SCH ×2 (05:42→11:23)
[2021-02-24] MEDS: Furosemide 40 MG/4 ML VIAL IVPUSH SCH (05:42)
[2021-02-24 06:53] LABS: BLOOD UREA NITROGEN,BUN 21 mg/dL (7.0-18.0); CARBON DIOXIDE,CO2 30.8 mmol/L (21.0-32.0); CHLORIDE,CL 102 mmol/L (98-107); GLUCOSE RANDOM 136 mg/dL (74-106); POTASSIUM,K 4.3 mmol/L (3.5-5.1); SODIUM,NA 142 mmol/L (136-148)
[2021-02-24 08:17] VITALS: BP 135/94; PULSE 92
--- NOTE | 2021-02-24 08:32 | PCM.DCSUM1 ---
Discharge Summary - Discharge Data Discharge Date: 02/24/21 Discharge Disposition: Home, Self-Care 01 Condition: Stable - Referral to Home Health Primary Care Physician: PCP None - Discharge Diagnosis/Problem(s) (1) New onset atrial fibrillation SNOMED Code(s): 63265070 ICD Code: I48.91 - UNSPECIFIED ATRIAL FIBRILLATION Status: Acute Current Visit: Yes (2) New onset of congestive heart failure SNOMED Code(s): 57089026 ICD Code: I50.9 - HEART FAILURE, UNSPECIFIED Status: Acute Current Visit: Yes - Patient Summary/Data Hospital Course: 50 yo male with pmh of JINA and HTN who presents to the ED with complaint of worsening shortness of breath with exertion. He also reports increasing leg edema and weight gain. He was noted to be in atrial fibrillation with heart rate in the 90s-130s. CT chest angio reported pulmonary edema. He was treated with IV lasix and had improvement in his shortness of breath. For his atrial fibrillation he was started on Eliquis. He was also started on metoprolol and heart rate has improved. Echocardiogram reported LVEF of 35%. Today patient is requesting discharge home. He was discharged home with lisinopril, metoprolol and eliquis. His Lasix was increased to twice a day dosing. - Patient Instructions Diet: Low Sodium Activity: As Tolerated Other/Special Instructions: You were diagnosed with Congestive heart failure and atrial fibrillation with rapid heart rate. We added lisinopril to treat your congestive heart failure. Side effects of lisinopril include allergy, cough, tongue swelling, and low blood pressure. The new medication metoprolol will help with heart function and rate control. Side effects of metoprolol include allergy, fatigue and low blood pressure and heart rate. Please stop taking amlodpine. Please monitor your blood pressure daily. Lasix dose has been inc rease to twice a day to help control fluid overload. Please limit your salt intake to 2 grams a day. Please limit your intake of fluids to 2 liters a day. Weigh yourself daily as an increase in 1 LB in a day or 3 LB in a week may be signs of fluid overload and you may need to increase your lasix. The new medication Eliquis will help prevent strokes. Side effects include allergy and bleeding. Please follow up with your primary care provider. - Discharge Plan Prescriptions/Med Rec: Apixaban [Eliquis] 5 mg PO BID #60 tablet Furosemide 20 mg PO BID #60 tab lisinopriL [Lisinopril] 10 mg PO DAILY #30 tablet Metoprolol Succinate 100 mg PO DAILY #30 tab.er.24h Home Medications: Home Meds hydroCHLOROthiazide [Hydrochlorothiazide] 25 mg PO DAILY 04/09/16 [History] Meloxicam 15 mg PO DAILY 02/21/21 [History] Sertraline [Zoloft] 150 mg PO DAILY 02/21/21 [History] Sildenafil [Revatio] 20 mg PO TID 02/21/21 [History] atorvaSTATin [Lipitor] 20 mg PO BEDTIME 02/21/21 [History] Apixaban [Eliquis] 5 mg PO BID #60 tablet 02/24/21 [Rx] Furosemide 20 mg PO BID #60 tab 02/24/21 [Rx] Metoprolol Succinate 100 mg PO DAILY #30 tab.er.24h 02/24/21 [Rx] lisinopriL [Lisinopril] 10 mg PO DAILY #30 tablet 02/24/21 [Rx] Patient Handouts: Heart Failure, Self-Care, [id number], Living With Heart Failure, Heart Failure and Exercise, Atrial Fibrillation, [id number], Heart Failure Eating Plan Referrals: Demi Siddiqui DO [Ordering Only Provider] - 03/06/21 2:30 pm - Discharge Summary/Plan Comment DC Time >30 min.: Yes Total # of Minutes for Discharge Time: 35 - Patient Data Vitals - Most Recent: Last Vital Signs Temp 36.1 C 02/24/21 08:00 Pulse 92 02/24/21 08:00 Resp 14 02/24/21 08:00 BP 135/94 H 02/24/21 08:00 Pulse Ox 94 L 02/24/21 08:00 Weight - Most Recent: 135.579 kg I&O - Last 24 hours: Intake & Output 02/23/21 02/24/21 02/24/21 22:59 06:59 14:59 Intake Total 1790 50 Output Total 2650 2050 Balance -860 -2000 Lab Results - Last 24 hrs: Laboratory Results - last 24 hr 02/24/21 02/24/21 Range/Units 05:26 05:26 WBC 6.61 (4.0-11.0) K/uL RBC 4.88 (4.50-5.90) M/uL Hgb 15.4 (13.0-17.0) g/dL Hct 45.9 (38.0-50.0) % MCV 94.1 (80.0-98.0) fL MCH 31.6 (27.0-32.0) pg MCHC 33.6 (31.0-37.0) g/dL RDW Std Deviation 46.0 (28.0-62.0) fl RDW Coeff of Britt 14 (11.0-15.0) % Plt Count 265 (150-400) K/uL MPV 10.00 (7.40-12.00) fL Neut % (Auto) 67.1 (48.0-80.0) % Lymph % (Auto) 20.6 (16.0-40.0) % [place] % (Auto) 7.6 (0.0-15.0) % Eos % (Auto) 4.4 (0.0-7.0) % Baso % (Auto) 0.3 (0.0-1.5) % Neut # (Auto) 4.4 (1.4-5.7) K/uL Lymph # (Auto) 1.4 (0.6-2.4) K/uL [place] # (Auto) 0.5 (0.0-0.8) K/uL Eos # (Auto) 0.3 (0.0-0.7) K/uL Baso # (Auto) 0.0 (0.0-0.1) K/uL Nucleated RBC % 0.0 /100WBC Nucleated RBCs # 0 K/uL Sodium 142 (136-148) mmol/L Potassium 4.3 (3.5-5.1) mmol/L Chloride 102 (98-107) mmol/L Carbon Dioxide 30.8 (21.0-32.0) mmol/L BUN 21 H (7.0-18.0) mg/dL Creatinine 1.2 (0.8-1.3) mg/dL Est Cr Clr Drug Dosing 86.58 mL/min Estimated GFR (MDRD) > 60.0 ml/min Glucose 136 H (74-106) mg/dL Calcium 9.0 (8.5-10.1) mg/dL Med Orders - Current: Current Medications Acetaminophen (Acetaminophen 325 Mg Tab) 650 mg PO Q6H PRN PRN Reason: Pain Last Admin: 02/24/21 06:46 Dose: 650 mg Documented by: Apixaban (Apixaban 5 Mg Tab) 5 mg PO BID [facility] Last Admin: 02/23/21 22:18 Dose: 5 mg Documented by: Calcium Carbonate/Glycine (Calcium Carbonate 500 Mg Tab.Chew) 1,000 mg PO TID PRN PRN Reason: Indigestion Last Admin: 02/22/21 22:53 Dose: 1,000 mg Documented by: Furosemide (Furosemide 40 Mg/4 Ml Vial) 40 mg IVPUSH TID [facility] Last Admin: 02/24/21 05:42 Dose: 40 mg Documented by: Metoprolol Tartrate (Metoprolol Tartrate 25 Mg Tab) 25 mg PO Q6H [facility] Last Admin: 02/24/21 05:42 Dose: 25 mg Documented by: Sertraline HCl (Sertraline 50 Mg Tab) 150 mg PO DAILY [facility] Last Admin: 02/23/21 09:53 Dose: 150 mg Documented by: Sodium Chloride (Sodium Chloride 0.9% 10 Ml Syringe) 10 ml FLUSH ASDIRECTED PRN PRN Reason: Keep Vein Open Last Admin: 02/21/21 18:00 Dose: 10 ml Documented by: Sodium Chloride (Sodium Chloride 0.9% 2.5 Ml Syringe) 2.5 ml FLUSH ASDIRECTED PRN PRN Reason: Keep Vein Open Last Admin: 02/21/21 18:00 Dose: 2.5 ml Documented by: Discontinued Medications Acetaminophen (Acetaminophen 325 Mg Tab) Confirm Administered Dose 650 mg .ROUTE .STK-MED ONE Stop: 02/22/21 04:33 Last Admin: 02/22/21 11:33 Dose: Not Given Documented by: Calcium Carbonate/Glycine (Calcium Carbonate 500 Mg Tab.Chew) 1,000 mg PO Q2HR PRN PRN Reason: Indigestion Furosemide (Furosemide 40 Mg/4 Ml Vial) 20 mg IVPUSH NOW ONE Stop: 02/21/21 18:50 Last Admin: 02/21/21 19:26 Dose: 20 mg Documented by: Furosemide (Furosemide 40 Mg/4 Ml Vial) 40 mg IVPUSH BID [facility] Last Admin: 02/22/21 09:42 Dose: 40 mg Documented by: Iopamidol (Iopamidol 755 Mg/Ml 500 Ml Multipack Bottle) 100 ml IVPUSH ONETIME STA Stop: 02/21/21 19:04 Last Admin: 02/21/21 19:04 Dose: 100 ml Documented by: Nitroglycerin (Nitroglycerin 2% Oint 1 Gm Ud Packet) 1 gm TOP ONETIME ONE Stop: 02/21/21 18:45 Last Admin: 02/21/21 19:26 Dose: 1 gm Documented by:
[2021-02-24] MEDS: Apixaban 5 MG Tab PO SCH (09:11)
[2021-02-24] MEDS: Sertraline 50 MG Tab PO SCH (09:11)
--- NOTE | 2021-02-27 09:43 | ECHO ---
EXAM DATE: 02/21/21 PATIENT'S AGE: 50 The ECHO report has been scanned into [employer] and can be seen in this patient's EMR (Electronic Medical Record) under the REPORTS section. The report has also been scanned into PACS. ASHLEY
== END 2021-02-24 10:50 | disposition home or self-care (01) | DRG 194 ==
LOC: MW.ED 14:46 → MW.MS 19:56
PROVIDERS: ADMIT Internal Medicine; ATTEND Internal Medicine
DX: I11.0 Hypertensive heart disease with heart failure (principal); I50.9 Heart failure, unspecified; I48.91 Unspecified atrial fibrillation; G47.33 Obstructive sleep apnea (adult) (pediatric); E78.00 Pure hypercholesterolemia, unspecified; F41.9 Anxiety disorder, unspecified; Z20.822 Contact with and (suspected) exposure to COVID-19; F32.A Depression, unspecified; E66.9 Obesity, unspecified; F17.210 Nicotine dependence, cigarettes, uncomplicated; Z91.09 Other allergy status, other than to drugs and biological substances; Z79.52 Long term (current) use of systemic steroids; Z79.899 Other long term (current) drug therapy; Z68.38 Body mass index [BMI] 38.0-38.9, adult
CPT/HCPCS: 36415; 71045; 71045-26; 71275; 71275-26; 80048; 80053; 81003; 83880; 84484; 85025; 85379; 85610; 93005; 93306; 96374; 99285-25; A9270-GY; J1940; Q9967; U0002

== ENCOUNTER 2021-05-11 12:11 | Emergency (ER) | payer BC ==
[2021-05-11 12:24] VITALS: BP 144/75; PULSE 74
[2021-05-11] MEDS ORDERED: Sulfamethoxazole/Trimethoprim 800-160 MG Tab PO ONE (12:42)
== END 2021-05-11 13:30 | disposition home or self-care (01) ==
LOC: MW.ED 12:11
DX: L03.213 Periorbital cellulitis (principal); E66.9 Obesity, unspecified; I11.0 Hypertensive heart disease with heart failure; I50.9 Heart failure, unspecified; I48.91 Unspecified atrial fibrillation; E78.00 Pure hypercholesterolemia, unspecified; F41.9 Anxiety disorder, unspecified; F32.A Depression, unspecified; Z91.09 Other allergy status, other than to drugs and biological substances
CPT/HCPCS: 99283; A9270

== ENCOUNTER 2021-06-01 06:23 | Emergency (ER) | payer BC ==
[2021-06-01] MEDS ORDERED: EPINEPHrine 1 MG/ML SDV ONE ×2 (06:28→06:55)
[2021-06-01] MEDS ORDERED: Famotidine 20 MG/2 ML SDV ONE (06:32)
[2021-06-01] MEDS ORDERED: diphenhydrAMINE 50 MG/ML SDV ONE (06:32)
[2021-06-01] MEDS ORDERED: methylPREDNISolone Sodium Succinate 125 MG/2 ML SDV ONE (06:32)
[2021-06-01] MEDS ORDERED: Oxymetazoline 0.05% Nasal Spray 15 ML Bottle NAS ONE (06:43)
[2021-06-01] MEDS ORDERED: Benzocaine 20% Topical Spray UD MUCMEM ONE (06:43)
[2021-06-01] MEDS ORDERED: methylPREDNISolone Sodium Succinate 125 MG/2 ML SDV IVPUSH ONE (06:48)
[2021-06-01] MEDS ORDERED: diphenhydrAMINE 50 MG/ML SDV IVPUSH ONE (06:48)
[2021-06-01] MEDS ORDERED: Famotidine 20 MG/2 ML SDV IVPUSH ONE (06:49)
[2021-06-01] MEDS ORDERED: EPINEPHrine 1 MG/ML SDV IM ONE ×2 (06:49→07:05)
[2021-06-01] MEDS ORDERED: Benzocaine 20% Topical Spray UD ONE (06:51)
[2021-06-01] MEDS ORDERED: EPINEPHrine 1 MG/ML SDV IM STA (06:58)
[2021-06-01] MEDS ORDERED: EPINEPHrine 1 MG/1 ML Amp IVPUSH STA (07:01)
[2021-06-01 10:00] VITALS: BP 137/82; PULSE 80
== END 2021-06-01 10:00 | disposition home or self-care (01) ==
LOC: MW.ED 06:23
DX: T78.3XXA Angioneurotic edema, initial encounter (principal)
CPT/HCPCS: 96372; 96374; 96375; 99283; A9270; J0171; J1200; J2930; J3490

== ENCOUNTER 2023-01-20 10:51 | Emergency (ER) | payer OTHER ==
[2023-01-20] MEDS ORDERED: oxyCODONE 5 MG Tab PO STA (11:28)
[2023-01-20] MEDS ORDERED: Acetaminophen 500 MG Tab PO STA (11:28)
[2023-01-20] MEDS ORDERED: Diphtheria,Pertussis(Acell),Tetanus Vaccine 0.5 ML Syringe IM ONE (11:32)
[2023-01-20] MEDS ORDERED: Bacitracin Oint 1 GM U/D Packet TOP STA (12:54)
[2023-01-20 13:21] VITALS: BP 143/87; PULSE 54
== END 2023-01-20 13:21 | disposition home or self-care (01) ==
LOC: MW.ED 10:51
DX: S62.632A Displaced fracture of distal phalanx of right middle finger, initial encounter for closed fracture (principal); S61.212A Laceration without foreign body of right middle finger without damage to nail, initial encounter; E78.00 Pure hypercholesterolemia, unspecified; I11.0 Hypertensive heart disease with heart failure; I50.9 Heart failure, unspecified; Z23 Encounter for immunization; F17.210 Nicotine dependence, cigarettes, uncomplicated; Z91.048 Other nonmedicinal substance allergy status; Z79.899 Other long term (current) drug therapy; W20.8XXA Other cause of strike by thrown, projected or falling object, initial encounter
CPT/HCPCS: 73130; 90471; 90715; 99283; A9270